=== PATIENT | female | born 1945 | race Caucasian/White ===

== ENCOUNTER 2016-09-22 05:45 | Inpatient (IN) | payer MEDICARE, OTHER ==
[~2016-09-22] VITALS: Ht 162.6 cm; Wt 35.0 kg
[~2016-09-22 05:45] MED LIST: ALBU8I INH; ALLO100T PO; ARIC5TAB PO; ATRO17AE INH; CALC-137 PO; CHOL50006 PO; COUM2TAB PO; DICY10 PO; DILA50CH PO; DRON2.5C PO; DUONI NEB; FENT75DI TD; FIORIC PO; FLOR250C PO; FOSI10TA PO; FURO20TA PO; LIPA1CAP4 PO; LYRI50CA2 PO; OXAZ15CA2 PO; OXYM10TA5 PO; OXYM30TA4 PO; OXYM40TA5 PO; PHEN100 PO; POTA-267 PO; PROM25TA5 PO; PROT40TA PO; SYNT112T PO; TAB-TAB PO; VESI10TA4 PO; VITA10004 PO; ZOLO50TA PO
[2016-09-22 05:55] VITALS: BP 143/68; PULSE 94; RESP 18; TEMP 97.7; O2SAT 94
[2016-09-22] MEDS ORDERED: LIDOCAINE HCL 1% PF 30 ML VIAL INFIL ONE (06:15)
--- NOTE | 2016-09-22 06:29 | PD ---
HPI Chief Complaint: Fall Time Seen by Provider: 06:19 Travel History International Travel<30 days: No Contact w/Intl Traveler<30days: No Traveled to known affect area: No History of Present Illness HPI 71-year-old female presents to the emergency department by private transportation in the care of her spouse for evaluation of head injury. According to the who is with the patient and provides most the history patient was undergoing her evening peritoneal dialysis while lying in bed and reportedly rolled out of bed and hit her head sustaining a scalp laceration to the right frontal scalp. There was no reported loss of consciousness or seizure activity. Patient does have history of seizure activity is currently prescribed Dilantin. According to the she has been on continuous sedation for reported history of chronic restlessness syndrome. Patient has not had any vomiting. states injury occurred approximate 2 PM and he discontinued for dialysis at that time. Patient's did contact the [facility] hospice nurse to evaluate her. Patient is under the care of [facility] for resources but reportedly is not a hospice patient. 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 Tetanus status current as of 2014. Per increased agitation began after a 2 days state [facility] where she had to be placed as there was no one to care for her at home while he had to go out of town to 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 Hx Anticoagulant Therapy: Yes (Coumadin) Anemia: Yes Arthritis: Yes Asthma: Yes Autoimmune Disease: Yes (RA) Blood Disorders: No Anxiety: No Depression: No Heart Rhythm Problems: No Cancer: No Cardiovascular Problems: Yes (MURMER) High Cholesterol: Yes Chemotherapy: No Chest Pain: No Congestive Heart Failure: No COPD: Yes Diabetes: No Diminished Hearing: No Endocrine: Yes Gastrointestinal Disorders: Yes (RECTAL POLYP REMOVED, RECTAL CYST, RECTAL PROLAPSE) GERD: Yes Glaucoma: No Genitourinary: Yes (CHRONIC PYELONEPHRITIS) Headaches: Yes Hepatitis: No Hiatal Hernia: No Hypertension: Yes Immune Disorder: No Implanted Vascular Access Dvce: Yes (RIGHT PICC) Kidney Stones: Yes Musculoskeletal: Yes (CHRONIC BACK PAIN) Neurologic: Yes (SEIZURE ACTIVITY more like shakey when iron is low) Psychiatric: No Reproductive: Yes (hysterectomy) Respiratory: Yes Immunizations Current: Yes Migraines: Yes Myocardial Infarction: No Radiation Therapy: No Renal Failure: Yes (PERITONEAL DALYSIS) Seizures: No Sickle Cell Disease: No Sleep Apnea: No Thyroid Disease: Yes (partial thyroidectomy) Ulcer: Yes (STOMACH - WITH BLOOD TRANSFUSION) PNEUMOCCOCAL Vaccine (Year): 1 Menopausal: Yes Past Surgical History Abdominal Surgery: Yes (IMPLANTEDDIALYSIS CATHETER,rectal prolapse repair) AICD: No Appendectomy: Yes Arteriovenous Shunt: No Body Medical Devices: PERITONEALDIALYSIS TUBE Cardiac Surgery: No Cholecystectomy: Yes Ear Surgery: No Endocrine Surgery: Yes (partial thyroidectomy in 1960 ) Eye Surgery: Yes (rt lens s/p cataracts removal) Genitourinary Surgery: No Gynecologic Surgery: Yes (HYSTERECTOMY) Hysterectomy: Yes Insulin Pump: No Joint Replacement: No Neurologic Surgery: No Oral Surgery: Yes (T & A) Pacemaker: No Thoracic Surgery: No Tonsillectomy: Yes Other Surgery: Yes (DEVIATED SEPTUM, RECTAL PROLAPSE, PARTIAL THYROIDECTOMY) Social History Alcohol Use: No Tobacco Use: No Substance Use: No Allergies-Medications (Allergen,Severity, Reaction): Coded Allergies: Contrast Media (Verified Allergy, Severe, HIVES/SOB, 06/15/15) Diphenhydramine (Verified Allergy, Severe, HIVES/SOB, 06/15/15) ANTIHISTAMINES Penicillin (Verified Allergy, Severe, SOB HIVES, 06/15/15) Adhesives (Verified Allergy, Mild, Swelling, 06/15/15) Benadryl (Verified Allergy, Mild, 06/15/15) Iohexol (OMNIPAQUE) (Verified Allergy, Unknown, sob with premedication-- no contrast!, 06/15/15) Aspirin (Verified Adverse Reaction, Severe, HAS ULCERS, 06/15/15) Reported Meds & Prescriptions Reported Meds & Active Scripts Active Reported Dilantin (Phenytoin Extended) 100 Mg Cap 330 Mg PO DAILY Aricept (Donepezil) 10 Mg Tab 10 Mg PO HS Coumadin (Warfarin) 1 Mg Tab 1 Mg PO DIRECTED Prochlorperazine Maleate 5 Mg Tab 5 Mg PO Q6H PRN Bentyl (Dicyclomine HCl) 10 Mg Cap 10 Mg PO TID PRN Calcitriol 0.25 Mcg Cap 0.25 Mcg PO 2XWEEK Senna (Sennosides) 8.6 Mg Cap 8.6 Mg PO HS Dronabinol 2.5 Mg Cap 2.5 Mg PO BID Protonix (Pantoprazole Sodium) 40 Mg Tab 40 Mg PO DAILY Zenpep (Pancrelipase) 20,000-68,000-109,000 Units Cap 1 Cap PO TIDPC Florastor (Saccharomyces Boulardii) 250 Mg Cap 250 Mg PO DAILY Vesicare (Solifenacin) 10 Mg Tab 10 Mg PO DAILY PRN Lasix (Furosemide) 40 Mg Tab 60 Mg PO DAILY PRN Vitamin D (Ergocalciferol) 50,000 Unit Cap 50,000 Units PO [id number] Oxazepam 15 Mg Cap 15 Mg PO HS PRN Synthroid (Levothyroxine Sodium) 112 Mcg Tab 112 Mcg PO DAILY Haloperidol Liq (Haloperidol Lactate) 2 Mg/Ml Conc 1 Mg PO Q6H Sertraline (Sertraline HCl) 50 Mg Tab 50 Mg PO DAILY Fioricet (Ptwiwheyqq-Fuvlmwhyrvnmh-Gnyikqxw) 50-300-40 Mg Cap 1 Cap PO Q4H Morphine IR (Morphine Sulfate) 15 Mg Tab 15 Mg PO Q4H PRN Methadone (Methadone HCl) 10 Mg Tab 30 Mg PO Q8HR Review of Systems Except as stated in HPI: all other systems reviewed are Neg General / Constitutional: No: Fever HENT: Positive: Headaches, No: Neck Stiffness Cardiovascular: No: Chest Pain or Discomfort Respiratory: No: Shortness of Breath Gastrointestinal: No: Vomiting, Abdominal Pain Genitourinary: No: Decreased Urinary Output Musculoskeletal: Positive: Myalgias, Arthralgias, No: Edema Skin: No Rash Neurologic: No: Weakness Hematologic/Lymphatic: No: Lymph Node Enlargement Physical Exam Narrative GENERAL: Frail adult female mildly disoriented with right frontal scalp laceration. SKIN: Warm and dry. Various staged ecchymoses. HEAD: Atraumatic. Normocephalic. Right frontal scalp laceration 4 cm bleeding controlled no bony abnormality identified no scalp soft tissue swelling. EYES: Pupils equal and round. No scleral icterus. No injection or drainage. ENT: No nasal bleeding or discharge. Mucous membranes pink and moist. NECK: Trachea midline. No JVD. No tenderness to palpation along the cervical spine or bony step-off. CARDIOVASCULAR: Regular rate and rhythm. RESPIRATORY: No accessory muscle use. Clear to auscultation. Breath sounds equal bilaterally. GASTROINTESTINAL: Abdomen soft, non-tender, nondistended. Hepatic and splenic margins not palpable. MUSCULOSKELETAL: Extremities without clubbing, cyanosis, or edema. No obvious deformities. NEUROLOGICAL: Awake and alert mildly disoriented. No obvious cranial nerve deficits. Motor grossly within normal limits. Five out of 5 muscle strength in the arms and legs. Normal speech. PSYCHIATRIC: Appropriate mood and affect; insight and judgment normal. Data Data Last Documented VS Vital Signs Date Time Temp Pulse Resp B/P Pulse Ox O2 Delivery O2 Flow Rate FiO2 09/22/16 06:44 95 Room Air 09/22/16 05:55 97.7 94 18 143/68 Orders Complete Blood Count With Diff (09/22/16 06:05) Prothrombin Time / Inr (Pt) (09/22/16 06:05) Thyroid Stimulating Hormone (09/22/16 06:05) Urinalysis - C+S If Indicated (09/22/16 06:05) Chest, Single Ap (09/22/16 06:05) Ct Brain W/O Iv Contrast(Rout) (09/22/16 06:05) Blood Glucose (09/22/16 06:05) Ecg Monitoring (09/22/16 06:05) Iv Access Insert/Monitor (09/22/16 06:05) Oximetry (09/22/16 06:05) Ct Cerv Spine W/O Contrast (09/22/16 ) Lidocaine Pf 1% Inj (Xylocaine-Mpf 1% In (09/22/16 06:15) Magnesium (Mg) (09/22/16 06:05) Phenytoin (Dilantin) (09/22/16 06:05) Ammonia (09/22/16 06:05) Basic Metabolic Panel (Bmp) (09/22/16 06:44) Urine Culture (09/22/16 07:10) Blood Culture (09/22/16 07:56) Lactic Acid (09/22/16 07:56) Ceftriaxone Inj (Rocephin Inj) (09/22/16 08:15) Admit Order (Ed Use Only) (09/22/16 ) ^ Saline Lock (09/22/16 08:32) Resp Oxygen Ta C Titrat 1-4 L (09/22/16 ) ^ Notify Dr: Other (09/22/16 08:32) Sodium Chloride 0.9% Flush (Ns Flush) (09/22/16 09:00) Sodium Chloride 0.9% Flush (Ns Flush) (09/22/16 08:45) Labs Laboratory Tests Test 09/22/16 09/22/16 06:44 07:10 White Blood Count 14.5 TH/MM3 Red Blood Count 3.99 MIL/MM3 Hemoglobin 12.3 GM/DL Hematocrit 39.6 % Mean Corpuscular Volume 99.3 FL Mean Corpuscular Hemoglobin 30.9 PG Mean Corpuscular Hemoglobin 31.1 % Concent Red Cell Distribution Width 14.6 % Platelet Count 315 TH/MM3 Mean Platelet Volume 7.2 FL Neutrophils (%) (Auto) 90.0 % Lymphocytes (%) (Auto) 3.4 % Monocytes (%) (Auto) 4.6 % Eosinophils (%) (Auto) 0.1 % Basophils (%) (Auto) 1.9 % Neutrophils # (Auto) 13.0 TH/MM3 Lymphocytes # (Auto) 0.5 TH/MM3 Monocytes # (Auto) 0.7 TH/MM3 Eosinophils # (Auto) 0.0 TH/MM3 Basophils # (Auto) 0.3 TH/MM3 CBC Comment DIFF FINAL Differential Comment Prothrombin Time 23.9 SEC Prothromb Time International 2.1 RATIO Ratio Sodium Level 137 MEQ/L Potassium Level 3.1 MEQ/L Chloride Level 97 MEQ/L Carbon Dioxide Level 28.1 MEQ/L Anion Gap 12 MEQ/L Blood Urea Nitrogen 36 MG/DL Creatinine 1.80 MG/DL Estimat Glomerular Filtration 28 ML/MIN Rate Random Glucose 142 MG/DL Calcium Level 7.9 MG/DL Magnesium Level 1.4 MG/DL Ammonia LESS THAN 10 MCMOL/L Thyroid Stimulating Hormone 31.100 uIU/ML 3rd Gen Phenytoin (Dilantin) Level 33.5 MCG/ML Urine Collection Type CATH Urine Color YELLOW Urine Turbidity MOD Urine pH 6.0 Urine Specific [place] 1.016 Urine Protein TRACE mg/dL Urine Glucose (UA) NEG mg/dL Urine Ketones NEG mg/dL Urine Occult Blood LARGE Urine Nitrite NEG Urine Bilirubin NEG Urine Leukocyte Esterase SMALL Urine RBC 20-24 /hpf Urine WBC 15-19 /hpf Urine WBC Clumps FEW Urine Transitional Epithelial 0-5 /hpf Cells Urine Amorphous Sediment FEW Urine Bacteria MANY /hpf Microscopic Urinalysis Comment CATH-CULTURE IND Urine Collection Time 0710 MDM Medical Decision Making Medical Screen Exam Complete: Yes Emergency Medical Condition: Yes Medical Record Reviewed: Yes Interpretation(s) CBC is automated differential: Leukocytosis 14,500 with left shift 90% neutrophils hemoglobin is stable at 12.3; platelets are in normal range at 315, 000 Metabolic panel remarkable for mild hypokalemia potassium 3.1 elevated BUN and creatinine of 36 and 1.80 this is near patient's baseline and random glucose of 142 bicarbonate and on gap are within normal range; patient is noted to have hypomagnesemia 1.4 Dilantin level isn't toxic range at 33.5 Serum ammonia is less than 10, not elevated Urinalysis is abnormal with positive clumped white blood cells and many bacteria culture indicated CT brain noncontrast reveals no acute intracranial abnormality or skull fracture reading per radiologist CONCLUSION: Stable examination. There is diffuse atrophy and an old infarct in left thalamus. No acute hemorrhage or edema identified. Frankie Hernandez MD on September 22, 2016 at 7:20 Board Certified Radiologist. This report was verified electronically. CT cervical spine shows significant degenerative changes but no acute fracture reading per radiologist CONCLUSION: There is marked anterior subluxation of C3 on C4 with accelerated arthritic change. There subchondral sclerosis and subchondral cystic change suggesting chronicity. The left C3 facet is quite small. There is no evidence of fracture. There is apical lung scarring and bleb formation. Frankie Hernandez MD on September 22, 2016 at 7:23 Board Certified Radiologist. This report was verified electronically. cxr: CONCLUSION: Some airspace disease in left upper lobe more pronounced than in December 2014, could be a small area of pneumonia. Frankie Hernandez MD on September 22, 2016 at 7:56 Board Certified Radiologist. This report was verified electronically. Differential Diagnosis ICH, CHI, skull fracture, laceration, contusion, arrhythmia, electrolyte disturbance, dehydration, Coumadin coagulopathy Narrative Course Patient placed on lunchroom monitor IV access obtained specimens questions for resulting patient sent for imaging of the brain and cervical spine At 7 AM patient is in CT department; CBC has been resulted and patient has mild leukocytosis of 14,500 with 90% neutrophils and stable hemoglobin 12.3 normal range platelet count within 15,000 Patient with progressive generalized weakness and being sedated at home because of agitation after being at [facility] for a few days while her had to go out of town and no one was available to care for her since that time she's had increased agitation and has been placed on Haldol along with her chronic pain medications. Patient has memory disturbance as well as history of seizure disorder as well as chronic renal failure and receives peritoneal dialysis daily she is also on Coumadin for previous CVA history and has had history of frequent falls. At this point in time in view of leukocytosis with abnormal urinalysis Dilantin toxicity increased agitation and confusion as well will admit for IV antibiotics hold Dilantin and monitor for seizure activity as level drops monitor for increased risk of fall patient has been cultured prior to administration of antibiotics call placed to her service for admission. Patient's care discussed in detail with Dr Flores for patient admission--- requests patient admit to [facility] telemetry Procedures Procedure Narrative LACERATION LOCATION: Right frontal scalp LENGTH: 4 cm NUMBER OF STITCHES/CHONG: 7 REPAIR: The area of the laceration was prepped with Betadine and sterilely draped. The laceration was infiltrated with 1% lidocaine plain . The wound was copiously irrigated and explored without evidence of foreign body, tendon injury or neurovascular injury. The wound was closed using 5-0 nylon. This was a single layer repair. A sterile dressing was applied. The patient was advised to keep the dressing clean and dry. Patient tolerated the procedure well. Tetanus status current as of 2014. Sepsis Criteria SIRS Criteria (2 or more): Heart rate over 90, WBC > 54617, < 4000 or > 10% bands Sepsis Criteria (SIRS+source): Infect source susp/known (urine) Physician Communication Physician Communication call placed to [facility] ---call placed to discuss with Dr Flores ---admit to [facility] to M/S telemetry Diagnosis Primary Impression: Closed head injury Qualified Code: S09.90XA - Closed head injury, initial encounter Additional Impressions: ESRD (end stage renal disease) Dilantin toxicity Qualified Code: T42.0X1A - Dilantin toxicity, accidental or unintentional, initial encounter UTI (urinary tract infection) Qualified Code: N39.0 - Urinary tract infection without hematuria, site unspecified Scalp laceration Qualified Code: S01.01XA - Scalp laceration, initial encounter Fall Qualified Code: W19.XXXA - Fall, initial encounter Sepsis Dementia Admitting Information Admitting Physician Requests: Admit Candi Cash MD Sep 22, 2016 06:29
[2016-09-22 06:44] VITALS: O2SAT 95
[2016-09-22 06:53] LABS: BASOPHIL # 0.3 TH/MM3 (0-0.2); BASOPHIL % 1.9 % (0.0-2.0); EOSINOPHIL % 0.1 % (0.0-4.0); HEMATOCRIT 39.6 % (35.0-46.0); LYMPH % 3.4 % (9.0-44.0); LYMPHOCYTE # 0.5 TH/MM3 (1.0-4.8); MEAN CELL VOLUME 99.3 FL (80.0-100.0); MEAN CORPUSCULAR HEMOGLOBIN 30.9 PG (27.0-34.0); MEAN CORPUSCULAR HGB CONC 31.1 % (32.0-36.0); MONO % 4.6 % (0.0-8.0); PLATELET COUNT 315 TH/MM3 (150-450); RED BLOOD COUNT 3.99 MIL/MM3 (4.00-5.30); RED CELL DISTRIBUTION WIDTH 14.6 % (11.6-17.2); WHITE BLOOD COUNT 14.5 TH/MM3 (4.0-11.0)
[2016-09-22 06:56] LABS: HEMO FLAGS DIFF FINAL
[2016-09-22 07:08] LABS: INTERNATIONAL NORMALIZED RATIO 2.1 RATIO; PROTHROMBIN TIME - PATIENT 23.9 SEC (9.8-11.6)
[2016-09-22 07:19] LABS: POTASSIUM 3.1 MEQ/L (3.5-5.1)
[2016-09-22 07:20] LABS: BLOOD, URINE LARGE (NEG); GLUCOSE,URINE NEG (NEG); KETONE, URINE NEG (NEG); METHOD OF COLLECTION CATH; NITRITE,URINE NEG (NEG)
[2016-09-22 07:21] LABS: URINE COLOR YELLOW (YELLW/STRAW)
[2016-09-22 07:22] LABS: BICARBONATE 28.1 MEQ/L (21.0-32.0); MAGNESIUM 1.4 MG/DL (1.5-2.5)
--- NOTE | 2016-09-22 07:23 | RADHPO ---
EXAM DATE/TIME: 09/22/2016 06:53 [facility] COMPARISON: No previous studies available for comparison. INDICATIONS : Fall today, laceration to superior head. RADIATION DOSE: 52.19 CTDIvol (mGy) MEDICAL HISTORY : Stroke. Seizures. Hypertension. SURGICAL HISTORY : None. ENCOUNTER: Initial ACUITY: 1 day PAIN SCALE: 7/10 LOCATION: superior head TECHNIQUE: Multiple contiguous axial images were obtained of the head. Using automated exposure control and adj ustment of the mA and/or kV according to patient size, radiation dose was kept as low as reasonably a chievable to obtain optimal diagnostic quality images. FINDINGS: CEREBRUM: There is a mild diffuse atrophy . The ventricles are normal for age. There is a small left lacunar i nfarct, chronic. No evidence of midline shift, mass lesion, hemorrhage or acute infarction. No extra -axial fluid collections are seen. POSTERIOR FOSSA: The cerebellum and brainstem are intact. The 4th ventricle is midline. The cerebellopontine angle i s unremarkable. EXTRACRANIAL: The visualized portion of the orbits is intact. SKULL: The calvaria is intact. No evidence of skull fracture. CONCLUSION: Stable examination. There is diffuse atrophy and an old infarct in left thalamus. No acute hemorrhage or edema identified. Frankie Hernandez MD on September 22, 2016 at 7:20 Board Certified Radiologist. This report was verified electronically.
[2016-09-22 07:25] LABS: BACTERIA, URINE MANY /hpf; COMMENT (UR) CATH-CULTURE IND; CULTURE IF INDICATED CATH CULTURE IND; WBC, URINE 15-19 /hpf (0-5)
[2016-09-22 07:26] LABS: TRANSITIONAL EPI CELLS, URINE 0-5 /hpf
--- NOTE | 2016-09-22 07:34 | RADHPO ---
EXAM DATE/TIME: 09/22/2016 06:53 [facility] COMPARISON: CT CERVICAL SPINE W/O CONTRAST, April 22, 2014, 12:49. INDICATIONS : Fall today, laceration to superior head. RADIATION DOSE: 23.28 CTDIvol (mGy) MEDICAL HISTORY : Stroke. Seizures. Hypertension. SURGICAL HISTORY : None. ENCOUNTER: Initial ACUITY: 1 day PAIN SCALE: 5/10 LOCATION: Bilateral neck TECHNIQUE: Volumetric scanning of the cervical spine was performed. Multiplanar reconstructions in the sagittal, coronal and oblique axial planes were performed. Using automated exposure control and adjustment o f the mA and/or kV according to patient size, radiation dose was kept as low as reasonably achievable to obtain optimal diagnostic quality images. FINDINGS: VERTEBRAE: There is grade 1 almost grade 2 anterior spondylolisthesis of C3 on C4. There is marked disc space na rrowing and subchondral cystic change. Marked intervertebral disc space narrowing at the C5 to 6 and C6-7 levels. There is a rightward cervical scoliosis. C2-C3: The bony spinal canal is normal in size. No evidence of disc bulge or herniation. The neural forami na are bilaterally patent. C3-C4: There is marked anterior subluxation of C3 on C4 with discogenic sclerosis and subchondral cystic marely nge. There is marked degenerative facet disease and subluxation without obvious acute fracture. The l eft C3 facet is small with marked degenerative change. C4-C5: The bony spinal canal is normal in size. No evidence of disc bulge or herniation. The neural forami na are bilaterally patent. C5-C6: There is a ridge of disc osteophyte complex slightly flattening the thecal sac. The facets are well a ligned. C6-C7: The bony spinal canal is normal in size. No evidence of disc bulge or herniation. The neural forami na are bilaterally patent. C7-T1: The bony spinal canal is normal in size. No evidence of disc bulge or herniation. The neural forami na are bilaterally patent. CONCLUSION: There is marked anterior subluxation of C3 on C4 with accelerated arthritic change. There subchondral sclerosis and subchondral cystic change suggesting chronicity. The left C3 facet is quite small. The re is no evidence of fracture. There is apical lung scarring and bleb formation. Frankie Hernandez MD on September 22, 2016 at 7:23 Board Certified Radiologist. This report was verified electronically.
[2016-09-22] MEDS ORDERED: VESI10TA PO (07:45)
[2016-09-22] MEDS ORDERED: FURO1TAB60 PO (07:45)
[2016-09-22] MEDS ORDERED: COUM1TAB PO (07:45)
[2016-09-22] MEDS ORDERED: DRON2.5C PO (07:45)
[2016-09-22] MEDS ORDERED: HALO2S PO (07:45)
[2016-09-22] MEDS ORDERED: BUTA1CAP PO (07:45)
[2016-09-22] MEDS ORDERED: FLOR250C PO (07:45)
[2016-09-22] MEDS ORDERED: SENN8.6C PO (07:45)
[2016-09-22] MEDS ORDERED: SERT-132 PO (07:45)
[2016-09-22] MEDS ORDERED: PROC5TAB PO (07:45)
[2016-09-22] MEDS ORDERED: PROT40TA PO (07:45)
[2016-09-22] MEDS ORDERED: CALC0.25 PO (07:45)
[2016-09-22] MEDS ORDERED: ARIC10TA PO (07:45)
[2016-09-22] MEDS ORDERED: MSIR15 PO (07:45)
[2016-09-22] MEDS ORDERED: ERGO1CAP10 PO (07:45)
[2016-09-22] MEDS ORDERED: DILA100C PO (07:45)
[2016-09-22] MEDS ORDERED: OXAZ15CA2 PO (07:45)
[2016-09-22] MEDS ORDERED: ZENP2000 PO (07:45)
[2016-09-22] MEDS ORDERED: DICY10 PO (07:45)
[2016-09-22] MEDS ORDERED: METH10TA PO (07:45)
[2016-09-22] MEDS ORDERED: SYNT112T PO (07:45)
--- NOTE | 2016-09-22 07:58 | RADHPO ---
EXAM DATE/TIME: 09/22/2016 07:18 [facility] COMPARISON: CHEST SINGLE AP, December 22, 2014, 13:18. INDICATIONS : Syncope MEDICAL HISTORY : None. SURGICAL HISTORY : None. ENCOUNTER: Initial ACUITY: 1 day PAIN SCORE: Non-responsive. LOCATION: Bilateral chest FINDINGS: A single view of the chest demonstrates a prominent bleb in the right midlung field. There some airsp afshan disease in the left upper lobe. No obvious pneumothorax. Continued right scoliosis.. The cardiom ediastinal contours are unremarkable. Osseous structures are intact. CONCLUSION: Some airspace disease in left upper lobe more pronounced than in December 2014, could be a small area of pneumonia. Frankie Hernandez MD on September 22, 2016 at 7:56 Board Certified Radiologist. This report was verified electronically.
[2016-09-22] MEDS ORDERED: cefTRIAXone INJ 1,000 MG in SODIUM CHLORIDE 0.9% INJ 100 ML IV ONE (08:15)
[2016-09-22] MEDS ORDERED: MAGNESIUM SULFATE 1 GM PREMIX 100 ML IV ONE (08:45)
[2016-09-22] MEDS ORDERED: SODIUM CHLORIDE 0.9% FLUSH 5 ML FLUSH FLUSH PRN (08:45)
[2016-09-22] MEDS ORDERED: SODIUM CHLORIDE 0.9% FLUSH 5 ML FLUSH IVF PRN (08:45)
[2016-09-22] MEDS ORDERED: SODIUM CHLORIDE 0.9% FLUSH 5 ML FLUSH IVF SCH (09:00)
[2016-09-22] MEDS: SODIUM CHLORIDE 0.9% FLUSH 5 ML FLUSH FLUSH SCH ×2 (09:25→21:51)
[2016-09-22 10:30] VITALS: BP 149/91; PULSE 80; RESP 18; O2SAT 96
[2016-09-22] MEDS ORDERED: HALOPERIDOL LACTATE 5 MG/ML AMP IM ONE (14:00)
[2016-09-22 16:01] VITALS: BP 115/66
--- NOTE | 2016-09-22 16:26 | HHI.HP ---
[facility] Service [facility] Primary Care Physician Jose Miguel Moeller MD Admission Diagnosis CHI; scalp laceration; dilantin toxicity; polypharmacy;UTI;ESRD Diagnoses: Chief Complaint: fall Travel History International Travel<30 Days: No Contact w/Intl Traveler <30 Da: No Traveled to Known Affected Are: No Sepsis Criteria SIRS Criteria (2 or more): Heart rate over 90, WBC > 45251, < 4000 or > 10% bands Severe Sepsis (+one): Lactate >2 Septic Shock Criteria: Lactic acid >=4 Criteria Outcome: Meets septic shock criteria History of Present Illness Patient is a 71-year-old female with dementia who did arrive to the emergency room with private transportation after a fall at home. Patient has been on home health care through [facility] although she is not on hospice. Apparently normally she lives with her who was out of town and the patient went to rehabilitation facility. Her son was able to bring her home however the home care Center per the patient's son was out of the room and the patient fell on her head and sustained a right sided laceration to the parietal temporal area. It has since been repaired in the emergency room. There is no loss of consciousness or seizure activity. Patient has severe dementia and has required constant reorienting and has been a fall risk in the past. She is also on Coumadin due to her history of stroke. Here the patient is quite agitated and requiring constant supervision. She is incoherent which is not new per the patient done. Patient does undergo peritoneal dialysis and has reportedly not had any trouble with this however she has come to the hospital with alleged lites which are quite abnormal as well as some toxicity levels with Dilantin. Recently patient's confusion has gotten worse and she had been placed on intermediate release morphine in addition to her methadone Fioricet as well as haloperidol in addition to her sertraline. Patient has also been on Aricept for dementia. He does have a history of seizures and that is why she is on Dilantin. There have been no fevers or chills. Has been no nausea. Patient has constant diarrhea due to rectal prolapse and inability to care for herself. Per the son this may have gotten worse over the last week. Patient appears quite dehydrated on exam. She eats poorly and has a normal body weight of about 80 pounds per the son. Lately she has eaten even less. Patient was admitted through the emergency room due to these issues. She was unable to have her labs drawn until vascular access was obtained. At that time blood cultures were obtained as well as serum lactate which was elevated at 5. She has mild leukocytosis, abnormal urinalysis and appears to be septic. She has been given IV antibiotics. Patient has been admitted to the medical team at [facility]. Review of Systems ROS Limitations: Poor Historian Constitutional: COMPLAINS OF: Weight loss, Change in appetite Endocrine: DENIES: Abnorml menstrual pattern, Heat/cold intolerance, Polydipsia , Polyuria, Polyphagia Eyes: DENIES: Blurred vision, Diplopia, Eye inflammation, Eye pain, Vision loss , Photosensitivity, Double Vision Ears, nose, mouth, throat: DENIES: Tinnitus, Hearing loss, Vertigo, Nasal discharge, Oral lesions, Throat pain, Hoarseness, Ear Pain, Running Nose, Epistaxis, Sinus Pain, Toothache, Odynophagia Cardiovascular: DENIES: Chest pain, Palpitations, Syncope, Dyspnea on Exertion , PND, Lower Extremity Edema, Orthopnea, Claudication Gastrointestinal: COMPLAINS OF: Abdominal pain, Diarrhea, DENIES: Black stools , Bloody stools, Constipation, Nausea, Vomiting, Difficulty Swallowing, Anorexia Genitourinary: DENIES: Abnormal vaginal bleeding, Dysmenorrhea, Dyspareunia, Sexual dysfunction, Urinary frequency, Urinary incontinence, Urgency, Hematuria , Dysuria, Nocturia, Vaginal discharge Musculoskeletal: DENIES: Joint pain, Muscle aches, Stiffness, Joint Swelling, Back pain, Neck pain Integumentary: DENIES: Abnormal pigmentation, Pruritus, Rash, Nail changes, Breast masses, Breast skin changes, Nipple discharge Hematologic/lymphatic: DENIES: Bruising, Lymphadenopathy Immunologic/allergic: DENIES: Eczema, Urticaria Neurologic: DENIES: Abnormal gait, Headache, Localized weakness, Paresthesias, Seizures, Speech Problems, Tremor, Poor Balance Psychiatric: COMPLAINS OF: Anxiety, Confusion, DENIES: Mood changes, Depression, Hallucinations, Agitation, Suicidal Ideation, Homicidal Ideation, Delusions Past Family Social History Past Medical History Fibromyalgia History of stroke on Coumadin Severe dementia Bladder instability Fecal incontinence Chronic any disease on peritoneal dialysis Hypothyroidism Chronic pain Past Surgical History Cholecystectomy Peritoneal dialysis placement Rectal surgery Eye surgery Partial thyroidectomy Hysterectomy Reported Medications Reviewed and the medical record, recently started on Haldol and Serax Allergies: Coded Allergies: Contrast Media (Verified Allergy, Severe, HIVES/SOB, 06/15/15) Diphenhydramine (Verified Allergy, Severe, HIVES/SOB, 06/15/15) ANTIHISTAMINES Penicillin (Verified Allergy, Severe, SOB HIVES, 06/15/15) Adhesives (Verified Allergy, Mild, Swelling, 06/15/15) Benadryl (Verified Allergy, Mild, 06/15/15) Iohexol (OMNIPAQUE) (Verified Allergy, Unknown, sob with premedication-- no contrast!, 06/15/15) Aspirin (Verified Adverse Reaction, Severe, HAS ULCERS, 06/15/15) Active Ordered Medications Reviewed in the medical record Family History Family history of hypertension and otherwise noncontributory due to multiple medical problems Social History No current tobacco or alcohol, lives at home where her is her full-time transplant rn Physical Exam Vital Signs Vital Signs Date Time Temp Pulse Resp B/P Pulse Ox O2 Delivery O2 Flow Rate FiO2 09/22/16 16:01 100 17 115/66 95 09/22/16 10:30 80 18 149/91 96 Room Air 09/22/16 06:44 95 Room Air 09/22/16 05:55 97.7 94 18 143/68 94 Physical Exam GENERAL: This is a frail elderly confused female requiring constant supervision SKIN: No rashes, ecchymoses or lesions. Cool and dry. HEAD: Right scalp laceration status post repair. Normocephalic. No temporal or scalp tenderness. EYES: Pupils equal round and reactive. Extraocular motions intact. No scleral icterus. No injection or drainage. ENT: Nose without bleeding, purulent drainage or septal hematoma. Throat without erythema, tonsillar hypertrophy or exudate. Uvula midline. Airway patent. NECK: Trachea midline. No JVD or lymphadenopathy. Supple, nontender, no meningeal signs. CARDIOVASCULAR: Regular rate and rhythm without murmurs, gallops, or rubs. RESPIRATORY: Clear to auscultation. Breath sounds equal bilaterally. No wheezes , rales, or rhonchi. GASTROINTESTINAL: Abdomen is soft, hypoactive, scaphoid, peritoneal catheter in place without surrounding erythema, tender on exam MUSCULOSKELETAL: Bilateral joint deformities consistent with osteoarthritis. Extremities without clubbing, cyanosis, or edema. No joint tenderness, effusion , or edema noted. No calf tenderness. Negative Homans sign bilaterally. NEUROLOGICAL: Awake and alert. Cranial nerves II through XII intact. Motor and sensory grossly within normal limits. Five out of 5 muscle strength in all muscle groups. Normal speech. Laboratory Laboratory Tests Test 09/22/16 09/22/16 09/22/16 06:44 07:10 14:40 White Blood Count 14.5 Red Blood Count 3.99 Hemoglobin 12.3 Hematocrit 39.6 Mean Corpuscular Volume 99.3 Mean Corpuscular Hemoglobin 30.9 Mean Corpuscular Hemoglobin 31.1 Concent Red Cell Distribution Width 14.6 Platelet Count 315 Mean Platelet Volume 7.2 Neutrophils (%) (Auto) 90.0 Lymphocytes (%) (Auto) 3.4 Monocytes (%) (Auto) 4.6 Eosinophils (%) (Auto) 0.1 Basophils (%) (Auto) 1.9 Neutrophils # (Auto) 13.0 Lymphocytes # (Auto) 0.5 Monocytes # (Auto) 0.7 Eosinophils # (Auto) 0.0 Basophils # (Auto) 0.3 CBC Comment DIFF FINAL Differential Comment Prothrombin Time 23.9 Prothromb Time International 2.1 Ratio Sodium Level 137 Potassium Level 3.1 Chloride Level 97 Carbon Dioxide Level 28.1 Anion Gap 12 Blood Urea Nitrogen 36 Creatinine 1.80 Estimat Glomerular Filtration 28 Rate Random Glucose 142 Calcium Level 7.9 Magnesium Level 1.4 Ammonia LESS THAN 10 Thyroid Stimulating Hormone 31.100 3rd Gen Phenytoin (Dilantin) Level 33.5 Urine Collection Type CATH Urine Color YELLOW Urine Turbidity MOD Urine pH 6.0 Urine Specific [place] 1.016 Urine Protein TRACE Urine Glucose (UA) NEG Urine Ketones NEG Urine Occult Blood LARGE Urine Nitrite NEG Urine Bilirubin NEG Urine Leukocyte Esterase SMALL Urine RBC 20-24 Urine WBC 15-19 Urine WBC Clumps FEW Urine Transitional Epithelial 0-5 Cells Urine Amorphous Sediment FEW Urine Bacteria MANY Microscopic Urinalysis Comment CATH-CULTURE IND Urine Collection Time 0710 Lactic Acid Level 5.9 Date/Time Procedure Status Source Growth 09/22/16 14:40 Aerobic Blood Culture Received Blood Peripheral Pending 09/22/16 14:40 Anaerobic Blood Culture Received Blood Peripheral Pending 09/22/16 07:10 Urine Culture Received Urine Catheterized Urine Pending Result Diagram: 09/22/1644 09/22/16643 Septic Shock Reassessment Heart: Regular rate and rhythm Lungs: Clear Skin: Warm Peripheral Pulses: Bounding Right Radial Bounding Left Radial Bounding Right Popliteal Bounding Left Popliteal Bounding Right Dorsalis Pedis Bounding Left Dorsalis Pedis Bounding Right Posterior Tibial Bounding Left Posterior Tibial Capillary Refill: Brisk Assessment and Plan Problem List: (1) Dilantin toxicity ICD Code: T42.0X1A Status: Acute Plan: We'll continue to hold Dilantin. Continue with dialysis plans Repeat levels (2) Scalp laceration ICD Code: S01.01XA Status: Acute Plan: Status post repair, continue supportive care wound care (3) Dementia ICD Code: F03.90 Status: Acute Plan: Severe, family health care surrogate through this spouse Continue Aricept (4) ESRD (end stage renal disease) ICD Code: N18.6 Status: Acute Plan: Continue peritoneal dialysis with nephrology consultation. (5) Septic shock ICD Code: A41.9 Status: Acute Plan: May be multifactorial Continue Vanco Flagyl, Cipro (PCN ALL) for possible spontaneous bacterial peritonitis, blood cultures are pending, urinalysis was abnormal ID consult (6) Closed head injury ICD Code: S09.90XA Status: Acute Plan: Status post scalp laceration repair Continue neuro checks (7) Dehydration ICD Code: E86.0 Status: Acute Plan: Patient with dry mucous membranes and poor IV access. We'll hydrate patient and continue to follow Assessment and Plan Chronically ill patient with acute change in status. Code Status full code Discussed Condition With patient family; TOPOGRAPHICAL ENGINEER, ER MD Cash Physician Certification 2 Midnight Certification Type: Admission for Inpatient Services Order for Inpatient Services The services are ordered in accordance with Medicare regulations or non- Medicare payer requirements, as applicable. In the case of services not specified as inpatient-only, they are appropriately provided as inpatient services in accordance with the 2-midnight benchmark. Estimated LOS (days): 5 5 days is the estimated time the patient will need to remain in the hospital, assuming treatment plan goals are met and no additional complications. Post-Hospital Plan: Not yet determined Problem Qualifiers (1) Dilantin toxicity: Qualified Code: T42.0X1A - Dilantin toxicity, accidental or unintentional, initial encounter (2) Scalp laceration: Qualified Code: S01.01XA - Scalp laceration, initial encounter (3) Closed head injury: Qualified Code: S09.90XA - Closed head injury, initial encounter Pinky Flores MD Sep 22, 2016 16:26
[2016-09-22] MEDS ORDERED: VANCOMYCIN INJ 1,250 MG in SODIUM CHLOR 0.9% 250 ML INJ 250 ML IV SCH (16:45)
[2016-09-22] MEDS ORDERED: Vancomycin Consult Pharmacy 1 EA OTHER SCH (16:45)
[2016-09-22] MEDS: SODIUM CHLOR 0.9% 1000 ML INJ 1,000 ML IV SCH (17:00)
[2016-09-22 17:24] VITALS: BP 114/64; PULSE 90; RESP 18; TEMP 97.5; O2SAT 96
[2016-09-22] MEDS ORDERED: HEPARIN SODIUM - IV 10,000 UNITS/10 ML VIAL IVF PRN (17:45)
[2016-09-22] MEDS ORDERED: SODIUM CHLORIDE 0.9% 10 ML VIAL IV PRN (17:45)
[2016-09-22] MEDS ORDERED: VANCOMYCIN INJ 800 MG in SODIUM CHLOR 0.9% 250 ML INJ 250 ML IV ONE (18:00)
[2016-09-22] MEDS ORDERED: POTASSIUM PHOSPHATE INJ 15 MMOL in SODIUM CHLORIDE 0.9% INJ 150 ML IV ONE (18:00)
[2016-09-22] MEDS ORDERED: CIPROFLOXACIN 200 MG PREMIX 100 ML IV SCH (18:00)
[2016-09-22] MEDS: metroNIDAZOLE 500 MG INJ 100 ML IV SCH (18:16)
[2016-09-22] MEDS: HALOPERIDOL LACTATE ORAL CONC 10 MG/5 ML CUP PO SCH (19:27)
[2016-09-22] MEDS: LIPASE/PROTEASE/AMYLASE (24,000/76,000/120,000) CAP PO SCH (19:27)
[2016-09-22 23:37] VITALS: BP 132/62; PULSE 92; RESP 19; TEMP 97.1; O2SAT 94
[2016-09-23] VITALS (8 sets, daily range): BP systolic 124–147; BP diastolic 62–76; PULSE 75–83; RESP 16–18; TEMP 97.1–98.7; O2SAT 93–97
[2016-09-23] MEDS: HALOPERIDOL LACTATE ORAL CONC 10 MG/5 ML CUP PO SCH ×4 (00:55→17:23)
[2016-09-23] MEDS: SODIUM CHLOR 0.9% 1000 ML INJ 1,000 ML IV SCH (03:00)
[2016-09-23] MEDS: CIPROFLOXACIN 200 MG PREMIX 100 ML IV SCH ×2 (03:35→14:00)
[2016-09-23] MEDS: metroNIDAZOLE 500 MG INJ 100 ML IV SCH ×3 (03:35→17:21)
[2016-09-23] MEDS: LEVOTHYROXINE SODIUM 112 MCG TAB PO SCH (07:00)
[2016-09-23 08:11] LABS: AUTOMATED NEUTROPHIL # 15.7 TH/MM3 (1.8-7.7); BASOPHIL % 0.2 % (0.0-2.0); EOSINOPHIL % 0.1 % (0.0-4.0); HEMATOCRIT 31.1 % (35.0-46.0); HEMO FLAGS DIFF FINAL; LYMPH % 3.1 % (9.0-44.0); LYMPHOCYTE # 0.5 TH/MM3 (1.0-4.8); MEAN CORPUSCULAR HEMOGLOBIN 31.9 PG (27.0-34.0); MEAN CORPUSCULAR HGB CONC 32.6 % (32.0-36.0); MONO % 5.6 % (0.0-8.0); PLATELET COUNT 326 TH/MM3 (150-450); RED BLOOD COUNT 3.17 MIL/MM3 (4.00-5.30); RED CELL DISTRIBUTION WIDTH 14.2 % (11.6-17.2); WHITE BLOOD COUNT 17.3 TH/MM3 (4.0-11.0)
[2016-09-23 08:29] LABS: ALKALINE PHOSPHATASE 236 U/L (45-117); ALT (GPT) 15 U/L (10-53); ANION GAP 12 MEQ/L (5-15); AST (GOT) 16 U/L (15-37); BLOOD UREA NITROGEN 27 MG/DL (7-18); CHLORIDE 97 MEQ/L (98-107); GLOMERULAR FILTRATION RATE 33 ML/MIN (>89); POTASSIUM 3.7 MEQ/L (3.5-5.1); SODIUM (NA) 136 MEQ/L (136-145); TOTAL BILIRUBIN ADULT 0.2 MG/DL (0.2-1.0)
[2016-09-23] MEDS: SERTRALINE HCL 50 MG TAB PO SCH (08:55)
[2016-09-23] MEDS: SODIUM CHLORIDE 0.9% FLUSH 5 ML FLUSH FLUSH SCH ×2 (08:56→21:46)
[2016-09-23] MEDS: LIPASE/PROTEASE/AMYLASE (24,000/76,000/120,000) CAP PO SCH ×3 (09:30→17:24)
[2016-09-23 09:54] LABS: LACTIC ACID GHOST NOT REPORTABLE
--- NOTE | 2016-09-23 10:16 | PD.CONS ---
[facility] Service Nephrology Consult Requested By Dr. Flores Reason for Consult ESRD on PD Primary Care Physician Jose Miguel Moeller MD History of Present Illness The patient is a 71 yo [place] female who is known to our services for ESRD on PD. She has severe dementia, so information was obtained thru previous documentation. As per notes, she has been at [facility] for just a few days as her who is her primary caregiver was out of town. She reportedly has been agitated and more confused since her stay at [facility]. She arrived with a head laceration that she states occurred from tripping and falling at her house. Her reported that she rolled out of bed. Although she does have seizure hx, she apparently did not have an seizure activity during fall, nor experience and LOC. She herself denies any fever, chills, nausea, vomiting, or diarrhea, but does endorse RLQ abdominal pain. We were consulted for dialysis care. (Lynn Yoder) Review of Systems ROS Limitations: Altered Mental Status (Lynn Yoder) Past Family Social History Allergies: Coded Allergies: Contrast Media (Verified Allergy, Severe, HIVES/SOB, 06/15/15) Diphenhydramine (Verified Allergy, Severe, HIVES/SOB, 06/15/15) ANTIHISTAMINES Penicillin (Verified Allergy, Severe, SOB HIVES, 06/15/15) Adhesives (Verified Allergy, Mild, Swelling, 06/15/15) Benadryl (Verified Allergy, Mild, 06/15/15) Iohexol (OMNIPAQUE) (Verified Allergy, Unknown, sob with premedication-- no contrast!, 06/15/15) Aspirin (Verified Adverse Reaction, Severe, HAS ULCERS, 06/15/15) Past Medical History ESRD on PD Fibromyalgia History of stroke on Coumadin Severe dementia Bladder instability Fecal incontinence Hypothyroidism Chronic pain Seizure Disorder Past Surgical History Hysterectomy Endoscopy for GI bleed and partial gastrectomy Lens surgery Peritoneal dialysis catheter insertion Nasal septum Rectal polyp and prolapse Partial thyroidectomy Reported Medications Reported Meds & Active Scripts Active Reported Dilantin (Phenytoin Extended) 100 Mg Cap 330 Mg PO DAILY Aricept (Donepezil) 10 Mg Tab 10 Mg PO HS Coumadin (Warfarin) 1 Mg Tab 1 Mg PO DIRECTED Prochlorperazine Maleate 5 Mg Tab 5 Mg PO Q6H PRN Bentyl (Dicyclomine HCl) 10 Mg Cap 10 Mg PO TID PRN Calcitriol 0.25 Mcg Cap 0.25 Mcg PO 2XWEEK Senna (Sennosides) 8.6 Mg Cap 8.6 Mg PO HS Dronabinol 2.5 Mg Cap 2.5 Mg PO BID Protonix (Pantoprazole Sodium) 40 Mg Tab 40 Mg PO DAILY Zenpep (Pancrelipase) 20,000-68,000-109,000 Units Cap 1 Cap PO TIDPC Florastor (Saccharomyces Boulardii) 250 Mg Cap 250 Mg PO DAILY Vesicare (Solifenacin) 10 Mg Tab 10 Mg PO DAILY PRN Lasix (Furosemide) 40 Mg Tab 60 Mg PO DAILY PRN Vitamin D (Ergocalciferol) 50,000 Unit Cap 50,000 Units PO [id number] Oxazepam 15 Mg Cap 15 Mg PO HS PRN Synthroid (Levothyroxine Sodium) 112 Mcg Tab 112 Mcg PO DAILY Haloperidol Liq (Haloperidol Lactate) 2 Mg/Ml Conc 1 Mg PO Q6H Sertraline (Sertraline HCl) 50 Mg Tab 50 Mg PO DAILY Fioricet (Uxkohcvyhl-Vjivolhtveexk-Sudznacj) 50-300-40 Mg Cap 1 Cap PO Q4H Morphine IR (Morphine Sulfate) 15 Mg Tab 15 Mg PO Q4H PRN Methadone (Methadone HCl) 10 Mg Tab 30 Mg PO Q8HR Active Ordered Medications Current Medications Medications (Trade) Dose Ordered Sig/Adeel Route Start Time Stop Time Status Last Admin (NS Flush) 2 ml UNSCH PRN FLUSH 09/22/16 08:45 (NS Flush) 2 ml BID FLUSH 09/22/16 09:00 09/23/16 08:56 (Haldol Lactate Liq) 1 mg Q6HR PO 09/22/16 18:00 09/23/16 07:01 (Synthroid) 112 mcg DAILY@06 PO 09/23/16 06:00 09/23/16 07:00 (Msir) 15 mg Q4H PRN PO 09/22/16 16:30 (Zoloft) 50 mg DAILY PO 09/23/16 09:00 09/23/16 08:55 Amylase/Lipase/ Protease 1 cap 1 cap TIDPC PO 09/22/16 18:30 09/22/16 19:27 Metronidazole 100 ml @ 100 mls/hr Q8H IV 09/22/16 17:00 09/23/16 08:56 Pharmacy Profile Note 0 ml @ 0 mls/hr UNSCH OTHER 09/22/16 16:45 Sodium Chloride 1,000 ml @ 100 mls/hr Q10H IV 09/22/16 17:00 09/22/16 17:00 (Cipro 200 Mg Premix) 100 ml @ 100 mls/hr Q12H IV 09/23/16 02:00 09/23/16 03:35 Family History Noncontributory Social History Lives at home with her . No h/o EtOH use, tobacco use, illicit drugs (Lynn Yoder) Physical Exam Vital Signs Vital Signs Date Time Temp Pulse Resp B/P Pulse Ox O2 Delivery O2 Flow Rate FiO2 09/23/16 09:39 95 09/23/16 08:00 98.7 83 16 147/67 96 09/23/16 05:29 97.1 81 18 145/76 93 09/22/16 23:37 97.1 92 19 132/62 94 09/22/16 17:24 97.5 90 18 114/64 96 09/22/16 16:01 100 17 115/66 95 09/22/16 10:30 80 18 149/91 96 Room Air Physical Exam GENERAL: Appears much older than states age. Cachectic. SKIN: Warm and dry. HEAD: . Normocephalic. Repaired laceration to R parietal region EYES: Pupils equal and round. No scleral icterus. No injection or drainage. ENT: No nasal bleeding or discharge. Mucous membranes pink and moist. NECK: Trachea midline. No JVD. CARDIOVASCULAR: Regular rate and rhythm. RESPIRATORY: No accessory muscle use. Clear to auscultation. Breath sounds equal bilaterally. GASTROINTESTINAL: Abdomen soft, nondistended. Hepatic and splenic margins not palpable. PD catheter dressed and clean on R side of abdomen. Tender to deep palpation RLQ MUSCULOSKELETAL: Extremities without clubbing, cyanosis, or edema. No obvious deformities. Bandaged RLE NEUROLOGICAL: Awake and alert. Normal speech. Appears confused and has to be redirected to answer questions. PSYCHIATRIC: Inappropriate mood and affect; abnormal insight and judgment Laboratory Laboratory Tests Test 09/22/16 09/23/16 14:40 07:44 Lactic Acid Level 5.9 2.2 White Blood Count 17.3 Red Blood Count 3.17 Hemoglobin 10.1 Hematocrit 31.1 Mean Corpuscular Volume 98.0 Mean Corpuscular Hemoglobin 31.9 Mean Corpuscular Hemoglobin 32.6 Concent Red Cell Distribution Width 14.2 Platelet Count 326 Mean Platelet Volume 7.7 Neutrophils (%) (Auto) 91.0 Lymphocytes (%) (Auto) 3.1 Monocytes (%) (Auto) 5.6 Eosinophils (%) (Auto) 0.1 Basophils (%) (Auto) 0.2 Neutrophils # (Auto) 15.7 Lymphocytes # (Auto) 0.5 Monocytes # (Auto) 1.0 Eosinophils # (Auto) 0.0 Basophils # (Auto) 0.0 CBC Comment DIFF FINAL Differential Comment Sodium Level 136 Potassium Level 3.7 Chloride Level 97 Carbon Dioxide Level 27.0 Anion Gap 12 Blood Urea Nitrogen 27 Creatinine 1.55 Estimat Glomerular Filtration 33 Rate Random Glucose 120 Calcium Level 7.5 Total Bilirubin 0.2 Aspartate Amino Transf 16 (AST/SGOT) Alanine Aminotransferase 15 (ALT/SGPT) Alkaline Phosphatase 236 Total Protein 5.3 Albumin 1.4 Phenytoin (Dilantin) Level 17.8 Date/Time Procedure Status Source Growth 09/22/16 17:41 Aerobic Blood Culture Received Blood Peripheral Pending 09/22/16 17:41 Anaerobic Blood Culture Received Blood Peripheral Pending 09/22/16 07:10 Urine Culture Received Urine Catheterized Urine Pending (Lynn Yoder) Result Diagram: 09/23/16 0744 09/23/16 0744 Imaging Last Impressions Head CT 09/22/16 0605 Signed Impressions: Service Date/Time: Thursday, September 22, 2016 06:53 - CONCLUSION: Stable examination. There is diffuse atrophy and an old infarct in left thalamus. No acute hemorrhage or edema identified. Frankie Hernandez MD Chest X-Ray 09/22/16 0605 Signed Impressions: Service Date/Time: Thursday, September 22, 2016 07:18 - CONCLUSION: Some airspace disease in left upper lobe more pronounced than in December 2014, could be a small area of pneumonia. Frankie Hernandez MD Cervical Spine CT 09/22/16 0000 Signed Impressions: Service Date/Time: Thursday, September 22, 2016 06:53 - CONCLUSION: There is marked anterior subluxation of C3 on C4 with accelerated arthritic change. There subchondral sclerosis and subchondral cystic change suggesting chronicity. The left C3 facet is quite small. There is no evidence of fracture. There is apical lung scarring and bleb formation. Frankie Hernandez MD (Lynn Yoder) Assessment and Plan Problem List: (1) ESRD (end stage renal disease) Plan: To continue with PD as ordered. Dialysis nurse has been contacted. Will check peritoneal cell counts and culture to r/o peritonitis. ID is on board and appreciate recommendations. Check phos, iPTH, and Vit D levels. The patient is severely debilitated and is at nutritional risk with hypoalbuminemia. Medications should be adjusted for the patient's ESRD. Avoid gadolinium. (2) Failure to thrive in adult Plan: As above, she has severe hypoalbuminemia. She has been deteriorating significant as an outpatient both physically and mentally. Given her overall declining status, we do feel that hospice would be appropriate if agreeable with the primary. CM should be consulted. (3) Closed head injury Plan: Repaired in ED. CT reviewed. Appears Warfarin has been held. (4) Dementia Plan: Mgmt as per primary (5) Sepsis Plan: BCx, UCx, and peritoneal cx pending. Abx as per ID (Lynn Yoder) Assessment and Plan The exam, history, and the medical decision-making described in the above note were completed with the assistance of the PA-C. I reviewed and agree with the findings presented. I attest that I had a [id number] encounter with the patient on the same day, and personally performed and documented my assessment and findings in the medical record. (Patricia Antony MD) Problem Qualifiers (1) Closed head injury: Qualified Code: S09.90XA - Closed head injury, initial encounter Lynn Yoder Sep 23, 2016 10:16 Patricia Antony MD Sep 24, 2016 15:41
--- NOTE | 2016-09-23 10:30 | PD.CONS ---
History of Present Illness Service Infectious disease Consult Requested By Dr Cynthia Flores Reason for Consult Evaluate patient with sepsis Primary Care Physician Jose Miguel Moeller MD Diagnoses: History of Present Illness Patient seen and examined. Records reviewed. Patient is a 71-year-old female presented to the hospital after a fall. Patient has underlying dementia, and is cared for by the . Apparently the last week or so she was placed in a rehabilitation facility short-term because the had to go out of town. The son took her out of the rehabilitation facility, and has had some home health nurses checking her at home. Apparently the nurse was not in the room and the patient fell off the bed and hit her head. She was taken to the emergency room, and was found to have laceration on her scalp which was sutured. Patient has problem with dementia and agitation and requires constant supervision. In the ED she has not been febrile. There's been no mention of any fever or chills at home. She gets pert nail dialysis, and there is no mention as to whether there was any cloudiness of her fluid. She complains of some abdominal pain. There is been no report of any diarrhea. Patient still voids. There has been no mention of any respiratory complain a sparse cough or shortness of breath. Because of her underlying dementia, it's been difficult to get a good history from her as far as trying to get a reliable review of systems. In the ED she had an elevated WBC. Her urinalysis did show some pyuria. Chest x-ray has shown stable left upper lobe infiltrate. Her lactic acid was elevated. Infectious disease consultation has been requested to evaluate for possible sepsis. Patient received 1 dose of vancomycin in the emergency room. She is currently on Cipro and Flagyl. CT of the head showed market atrophy, and an old infarct in the left thalamus. Cervical spine CT showing abnormality in C3- C4 no evidence of fracture. Review of Systems ROS Limitations: Clinical Condition, Altered Mental Status Past Family Social History Allergies: Coded Allergies: Contrast Media (Verified Allergy, Severe, HIVES/SOB, 06/15/15) Diphenhydramine (Verified Allergy, Severe, HIVES/SOB, 06/15/15) ANTIHISTAMINES Penicillin (Verified Allergy, Severe, SOB HIVES, 06/15/15) Adhesives (Verified Allergy, Mild, Swelling, 06/15/15) Benadryl (Verified Allergy, Mild, 06/15/15) Iohexol (OMNIPAQUE) (Verified Allergy, Unknown, sob with premedication-- no contrast!, 06/15/15) Aspirin (Verified Adverse Reaction, Severe, HAS ULCERS, 06/15/15) Past Medical History Fibromyalgia History of stroke on Coumadin Severe dementia Bladder instability Fecal incontinence Chronic any disease on peritoneal dialysis Hypothyroidism Chronic pain Past Surgical History Cholecystectomy Peritoneal dialysis placement Rectal surgery Eye surgery Partial thyroidectomy Hysterectomy Active Ordered Medications Creon Pro- Haldol Heparin Synthroid Flagyl Morphine Zoloft Vancomycin IV x 1 dose yesterday Social History No smoking No alcohol No drugs 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 SKIN: Cool and dry. Has scattered purpuric areas in her UE and LE HEAD: Normocephalic. No temporal or scalp tenderness. Has a sutured laceration in the R frontal region, dry, with no evidence of infection EYES: Pale conjunctiva, no petechia or hemorrhage. Pupils equal round and reactive. Extraocular motions intact. No scleral icterus. No injection or drainage. ENT: Nose without bleeding, or purulent drainage. Slightly dry oral mucosa. Throat without erythema, or exudate. Uvula midline. Airway patent. NECK: Trachea midline. No JVD or lymphadenopathy. Supple, nontender, no meningeal signs. CARDIOVASCULAR: Regular rate and rhythm without murmurs, gallops, or rubs. RESPIRATORY: Clear to auscultation. Breath sounds equal bilaterally. No wheezes , rales, or rhonchi. Decreased breath sounds at the bases. Has very prominent rib cage. GASTROINTESTINAL: Abdomen soft, mildly distended, with mild tenderness in the lower quadrants. No guarding no rebound. Bowel sounds are present and hypoactive. PD catheter on the right side. No hepato-splenomegaly, or palpable masses. MUSCULOSKELETAL: Extremities without clubbing, cyanosis, or edema. No joint tenderness, effusion, or edema noted. No calf tenderness. Negative Homans sign bilaterally. NEUROLOGICAL: Awake and alert. Cranial nerves grossly intact. Symmetrical motor strength in all extremities. No Babinski, no ankle clonus. She is confused. PSYCH: Confused, calm and cooperative LINE: PIV with no evidence of infection Laboratory Laboratory Tests Test 09/22/16 09/23/16 14:40 07:44 Lactic Acid Level 5.9 2.2 White Blood Count 17.3 Red Blood Count 3.17 Hemoglobin 10.1 Hematocrit 31.1 Mean Corpuscular Volume 98.0 Mean Corpuscular Hemoglobin 31.9 Mean Corpuscular Hemoglobin 32.6 Concent Red Cell Distribution Width 14.2 Platelet Count 326 Mean Platelet Volume 7.7 Neutrophils (%) (Auto) 91.0 Lymphocytes (%) (Auto) 3.1 Monocytes (%) (Auto) 5.6 Eosinophils (%) (Auto) 0.1 Basophils (%) (Auto) 0.2 Neutrophils # (Auto) 15.7 Lymphocytes # (Auto) 0.5 Monocytes # (Auto) 1.0 Eosinophils # (Auto) 0.0 Basophils # (Auto) 0.0 CBC Comment DIFF FINAL Differential Comment Sodium Level 136 Potassium Level 3.7 Chloride Level 97 Carbon Dioxide Level 27.0 Anion Gap 12 Blood Urea Nitrogen 27 Creatinine 1.55 Estimat Glomerular Filtration 33 Rate Random Glucose 120 Calcium Level 7.5 Total Bilirubin 0.2 Aspartate Amino Transf 16 (AST/SGOT) Alanine Aminotransferase 15 (ALT/SGPT) Alkaline Phosphatase 236 Total Protein 5.3 Albumin 1.4 Phenytoin (Dilantin) Level 17.8 Date/Time Procedure Status Source Growth 09/22/16 17:41 Aerobic Blood Culture Received Blood Peripheral Pending 09/22/16 17:41 Anaerobic Blood Culture Received Blood Peripheral Pending 09/22/16 07:10 Urine Culture Received Urine Catheterized Urine Pending Result Diagram: 09/23/16 0744 09/23/16 0744 Imaging RADIOLOGY STUDIES/FILMS REVIEWED Head CT 09/22/16 06 Signed Impressions: Service Date/Time: Thursday, September 22, 2016 06:53 - CONCLUSION: Stable examination. There is diffuse atrophy and an old infarct in left thalamus. No acute hemorrhage or edema identified. Frankie Hernandez MD Chest X-Ray 09/22/16 0605 Signed Impressions: Service Date/Time: Thursday, September 22, 2016 07:18 - CONCLUSION: Some airspace disease in left upper lobe more pronounced than in December 2014, could be a small area of pneumonia. Frankie Hernandez MD Cervical Spine CT 09/22/16 0000 Signed Impressions: Service Date/Time: Thursday, September 22, 2016 06:53 - CONCLUSION: There is marked anterior subluxation of C3 on C4 with accelerated arthritic change. There subchondral sclerosis and subchondral cystic change suggesting chronicity. The left C3 facet is quite small. There is no evidence of fracture. There is apical lung scarring and bleb formation. Frankie Hernandez MD Assessment and Plan Assessment and Plan IMPRESSION Presentation after a fall, and sustained lacertaion R forntal scalp, has leukocytosis, elevated lactic acid, has underlying ESRD on PD, has dementia - no fever - UA (+) pyuria - CXR with chronic FRANCO infiltrate, no pneumonia symptoms - abdominal tenderness, ?peritonitis on PD - no mention of any diarrhea; still voiding - ?leukocytosis, reactive from her fall ESRD on PD Dementia RECOMMENDATION Continue Cipro and Flagyl for now Follow C/S Spoke with Sana Yoder, works with renal, and she will order PD fluid for analysis and culture Check bladder scan Follow CBC Monitor progress I wll follow along with you Will make further recommendations once work-up completed Thank you for this consultation Radha Ku MD Sep 23, 2016 10:30
--- NOTE | 2016-09-23 11:34 | HHI.PR ---
Subjective Remarks resting comfortably in no distress. denies pain. d/w the RN and no acute issues over night. Objective Vitals Vital Signs Date Time Temp Pulse Resp B/P Pulse Ox O2 Delivery O2 Flow Rate FiO2 09/23/16 09:39 95 09/23/16 08:00 98.7 83 16 147/67 96 09/23/16 05:29 97.1 81 18 145/76 93 09/22/16 23:37 97.1 92 19 132/62 94 09/22/16 17:24 97.5 90 18 114/64 96 09/22/16 16:01 100 17 115/66 95 I/O 09/22/16 09/22/16 09/22/16 09/23/16 09/23/16 09/23/16 07:00 15:00 23:00 07:00 15:00 23:00 Intake Total 120 ml Output Total 125 ml 303 ml Balance -125 ml 120 ml -303 ml Intake Oral 120 ml Output Urine Total 125 ml Peritoneal Fluid 189 ml Hemodialysis 114 ml # Voids 2 1 1 Result Diagram: 09/23/16 0744 09/23/16 0744 Imaging Last Impressions Head CT 09/22/16 0605 Signed Impressions: Service Date/Time: Thursday, September 22, 2016 06:53 - CONCLUSION: Stable examination. There is diffuse atrophy and an old infarct in left thalamus. No acute hemorrhage or edema identified. Frankie Hernandez MD Chest X-Ray 09/22/16 0605 Signed Impressions: Service Date/Time: Thursday, September 22, 2016 07:18 - CONCLUSION: Some airspace disease in left upper lobe more pronounced than in December 2014, could be a small area of pneumonia. Frankie Hernandez MD Cervical Spine CT 09/22/16 0000 Signed Impressions: Service Date/Time: Thursday, September 22, 2016 06:53 - CONCLUSION: There is marked anterior subluxation of C3 on C4 with accelerated arthritic change. There subchondral sclerosis and subchondral cystic change suggesting chronicity. The left C3 facet is quite small. There is no evidence of fracture. There is apical lung scarring and bleb formation. Frankie Hernandez MD Objective Remarks GENERAL: in no acute distress CARDIOVASCULAR: Regular rate and regular rhythm without murmurs, gallops, or rubs. RESPIRATORY: Clear to auscultation. Breath sounds equal bilaterally. No wheezes , rales, or rhonchi. GASTROINTESTINAL: Abdomen soft, non-tender, nondistended. Normal, active bowel sounds MUSCULOSKELETAL: Extremities without clubbing, cyanosis, or edema. NEURO: awake but demented Medications and IVs Current Medications Lidocaine HCl 30 ml 30 ml ONCE ONCE INFIL Last administered on 09/22/16 07:19 ; Start 09/22/16 at 06:15; Stop 09/22/16 at 06:16; Status DC Ceftriaxone Sodium/Sodium Chloride (Rocephin Inj/NS Inj) 100 ml @ 200 mls/hr ONCE ONCE IV Last administered on 09/22/16 08:39; Start 09/22/16 at 08:15; Stop 09/22/16 at 08:44; Status DC IV Flush (NS Flush) 2 ml BID IVF ; Start 09/22/16 at 09:00; Stop 09/22/16 at 09: 04; Status DC IV Flush (NS Flush) 2 ml UNSCH PRN IVF FLUSH AFTER USING IV ACCESS; Start 09/22 at 08:45; Stop 09/22/16 at 09:04; Status DC IV Flush (NS Flush) 2 ml UNSCH PRN FLUSH FLUSH AFTER USING IV ACCESS; Start at 08:45 IV Flush 2 ml 2 ml BID FLUSH Last administered on 09/23/16 08:56; Start at 09:00 Magnesium Sulfate/ Dextrose (Magnesium Sulfate 1 Gm Premix) 100 ml @ 100 mls/ hr ONCE ONCE IV Last administered on 09/22/16 09:25; Start 09/22/16 at 08:45 ; Stop 09/22/16 at 09:44; Status DC Haloperidol Lactate (Haldol Inj) 2 mg ONCE ONCE IM Last administered on 13:55; Start 09/22/16 at 14:00; Stop 09/22/16 at 14:01; Status DC Haloperidol Lactate (Haldol Lactate Liq) 1 mg Q6HR PO Last administered on 09/23 07:01; Start 09/22/16 at 18:00 Levothyroxine Sodium (Synthroid) 112 mcg DAILY@06 PO Last administered on 07:00; Start 09/23/16 at 06:00 Morphine Sulfate (Msir) 15 mg Q4H PRN PO PAIN SCALE 1 TO 10; Start 09/22/16 at 16:30 Sertraline HCl (Zoloft) 50 mg DAILY PO Last administered on 09/23/16 08:55; Start 09/23/16 at 09:00 Amylase/Lipase/ Protease 1 cap 1 cap TIDPC PO Last administered on 09/22/16 19 :27; Start 09/22/16 at 18:30 Ciprofloxacin/ Dextrose 100 ml @ 100 mls/hr Q12H IV ; Start 09/22/16 at 18:00; Stop 09/23/16 at 00:28; Status DC Metronidazole 100 ml @ 100 mls/hr Q8H IV Last administered on 09/23/16 08:56 ; Start 09/22/16 at 17:00 Vancomycin HCl 1250 mg/Sodium Chloride 262.5 ml @ 262.5 mls/ hr Q24H IV ; Start 09/22/16 at 16:45; Status UNV Pharmacy Profile Note 0 ml @ 0 mls/hr UNSCH OTHER ; Start 09/22/16 at 16:45; Stop 09/23/16 at 10:33; Status DC Sodium Chloride 1,000 ml @ 100 mls/hr Q10H IV Last administered on 09/22/16 17:00; Start 09/22/16 at 17:00 Potassium Phosphate 15 mmol/ Sodium Chloride 155 ml @ 38.75 mls/ hr ONCE ONCE IV Last administered on 09/22/16 19:26; Start 09/22/16 at 18:00; Stop at 21:59; Status DC Vancomycin HCl/ Sodium Chloride (Vancomycin Inj/ NS 250 ml Inj) 258 ml @ 250 mls/hr ONCE ONCE IV Last administered on 09/22/16 19:27; Start 09/22/16 at 18 :00; Stop 09/22/16 at 19:01; Status DC Sodium Chloride (NS Inj) WITH DIALYSIS PRN IV SEE LABEL COMMENTS; Start at 17:45 Heparin Sodium (Porcine) Add 1000 units of Hepa... WITH DIALYSIS PRN IVF SEE LABEL COMMENTS; Start 09/22/16 at 17:45 Ciprofloxacin/ Dextrose (Cipro 200 Mg Premix) 100 ml @ 100 mls/hr Q12H IV Last administered on 09/23/16t 03:35; Start 09/23/16 at 02:00 A/P Assessment and Plan A/P (1) Dilantin toxicity dilantin level is improving We'll continue to hold Dilantin. Continue with dialysis plans Repeat levels. (2) Scalp laceration Status post repair, continue supportive care wound care (3) Dementia Severe, family health care surrogate through this spouse Continue Aricept (4) ESRD (end stage renal disease) Continue peritoneal dialysis- nephrology consulted. (5) severe sepsis Continue Marie Lester (PCN ALL) for possible spontaneous bacterial peritonitis , blood cultures negative so far..PD fluid will be sent for culture. ID consult appreciated. (6) Closed head injury Status post scalp laceration repair Continue neuro checks (7) Dehydration Patient with dry mucous membranes and poor IV access. We'll hydrate patient and continue to follow (8)- history of CVA and DVT will hold coumadin for now- doesn't seem to be a good candidate for anticoagulation with dementia and risk of falls. (9) hypothyroidism- continue synthroid DVT prophylaxis with SCD's. consult PT. Caroline Murray MD Sep 23, 2016 11:33
[2016-09-23] MEDS ORDERED: SODIUM CHLOR 0.9% 1000 ML INJ 1,000 ML IV ONE (17:00)
[2016-09-24] VITALS (9 sets, daily range): BP systolic 111–155; BP diastolic 59–79; PULSE 68–90; RESP 16–22; TEMP 96.4–98.3; O2SAT 93–99
[2016-09-24] MEDS: HALOPERIDOL LACTATE ORAL CONC 10 MG/5 ML CUP PO SCH ×5 (02:14→18:08)
[2016-09-24] MEDS: metroNIDAZOLE 500 MG INJ 100 ML IV SCH ×2 (02:15→09:00)
[2016-09-24] MEDS: CIPROFLOXACIN 200 MG PREMIX 100 ML IV SCH ×2 (02:15→13:16)
[2016-09-24] MEDS: LEVOTHYROXINE SODIUM 112 MCG TAB PO SCH (05:07)
[2016-09-24 08:01] LABS: BASOPHIL % 0.2 % (0.0-2.0); EOSINOPHIL % 0.3 % (0.0-4.0); HEMATOCRIT 31.1 % (35.0-46.0); HEMO FLAGS DIFF FINAL; LYMPH % 5.2 % (9.0-44.0); LYMPHOCYTE # 0.7 TH/MM3 (1.0-4.8); MEAN CELL VOLUME 97.6 FL (80.0-100.0); MEAN CORPUSCULAR HEMOGLOBIN 31.9 PG (27.0-34.0); MEAN CORPUSCULAR HGB CONC 32.7 % (32.0-36.0); MONO % 5.8 % (0.0-8.0); NEUT % 88.5 % (16.0-70.0); PLATELET COUNT 343 TH/MM3 (150-450); RED BLOOD COUNT 3.19 MIL/MM3 (4.00-5.30); RED CELL DISTRIBUTION WIDTH 14.1 % (11.6-17.2); WHITE BLOOD COUNT 13.5 TH/MM3 (4.0-11.0)
[2016-09-24 08:09] LABS: INTERNATIONAL NORMALIZED RATIO 2.3 RATIO; PROTHROMBIN TIME - PATIENT 26.1 SEC (9.8-11.6)
[2016-09-24] MEDS ORDERED: ACETAMINOPHEN 325 MG TAB PO PRN (08:45)
[2016-09-24] MEDS ORDERED: ONDANSETRON HCL 4 MG/2 ML VIAL IV PRN (08:45)
[2016-09-24] MEDS ORDERED: DOCUSATE SODIUM 100 MG CAP PO PRN (08:45)
[2016-09-24] MEDS ORDERED: CALCIUM CARBONATE 500 MG CHEWABLE TAB CHEW PRN ×2 (08:45→16:30)
[2016-09-24] MEDS ORDERED: DOCUSATE SODIUM 50 MG/SENNA 8.6 MG TAB PO PRN (08:45)
[2016-09-24 08:52] LABS: PERITONEAL LYMPHS 29 %; PERITONEAL MESOTHELIAL 14 %; PERITONEAL MONOS 36 %; PERITONEAL POLYS(SEGS) 21 %; PERITONEAL WBC 58 /MM3 (0-10)
[2016-09-24] MEDS: MORPHINE SULFATE 15 MG TAB PO PRN (08:58)
[2016-09-24] MEDS: LIPASE/PROTEASE/AMYLASE (24,000/76,000/120,000) CAP PO SCH ×3 (08:59→18:08)
[2016-09-24] MEDS: SERTRALINE HCL 50 MG TAB PO SCH (09:00)
[2016-09-24] MEDS: SODIUM CHLORIDE 0.9% FLUSH 5 ML FLUSH FLUSH SCH ×2 (09:00→21:00)
[2016-09-24 09:03] LABS: BICARBONATE 28.6 MEQ/L (21.0-32.0); POTASSIUM 3.2 MEQ/L (3.5-5.1)
[2016-09-24] MEDS ORDERED: Custom Consult Pharmacy 1 EA OTHER SCH (09:30)
[2016-09-24] MEDS ORDERED: POTASSIUM CHLORIDE 10 MEQ CONTROLLED RELEASE TAB PO ONE (09:45)
[2016-09-24 11:07] LABS: MAGNESIUM 1.5 MG/DL (1.5-2.5)
--- NOTE | 2016-09-24 11:23 | HHI.NPPN ---
Subjective History of Present Illness The patient is a 71 yo [place] female who is known to our services for ESRD on PD. She has severe dementia, so information was obtained thru previous documentation. As per notes, she has been at [facility] for just a few days as her who is her primary caregiver was out of town. She reportedly has been agitated and more confused since her stay at [facility]. She arrived with a head laceration that she states occurred from tripping and falling at her house. Her reported that she rolled out of bed. Although she does have seizure hx, she apparently did not have an seizure activity during fall, nor experience and LOC. She herself denies any fever, chills, nausea, vomiting, or diarrhea, but does endorse RLQ abdominal pain. We were consulted for dialysis care. Interval History Pt feeling OK today. Sitter in room. No events overnight. (Lynn Yoder) Objective Data Data 09/23/16 09/24/16 19:00 07:00 Intake Total 240 ml 240 ml Output Total 553 ml 0 ml Balance -313 ml 240 ml Intake Oral 240 ml 240 ml Output Urine Total 250 ml Stool Total 0 ml Peritoneal Fluid 189 ml Hemodialysis 114 ml Bladder Scan Volume Amount 24 ml # Voids 2 # Bowel Movements 0 0 Vital Signs Date Time Temp Pulse Resp B/P Pulse Ox O2 Delivery O2 Flow Rate FiO2 09/24/16 09:09 97 21 09/24/16 08:38 96.6 84 20 149/72 96 09/24/16 05:46 96.6 81 22 132/72 95 09/24/16 00:00 98.3 76 18 132/59 96 09/23/16 20:00 97.4 75 16 144/68 96 09/23/16 19:00 82 09/23/16 18:25 97 21 09/23/16 16:00 97.4 82 16 124/62 97 09/23/16 12:00 97.7 82 18 144/74 96 (Lynn Yoder) -: 09/24/16 0658 09/24/16 06 Microbiology 09/24/16 Gram Stain, Resulted Pending 09/24/16 Body Fluid Culture - Preliminary, Resulted NO GROWTH IN 24 HOURS. Imaging Last Impressions Head CT 09/22/16 06 Signed Impressions: Service Date/Time: Thursday, September 22, 2016 06:53 - CONCLUSION: Stable examination. There is diffuse atrophy and an old infarct in left thalamus. No acute hemorrhage or edema identified. Frankie Hernandez MD Chest X-Ray 09/22/16 0605 Signed Impressions: Service Date/Time: Thursday, September 22, 2016 07:18 - CONCLUSION: Some airspace disease in left upper lobe more pronounced than in December 2014, could be a small area of pneumonia. Frankie Hernandez MD Cervical Spine CT 09/22/16 0000 Signed Impressions: Service Date/Time: Thursday, September 22, 2016 06:53 - CONCLUSION: There is marked anterior subluxation of C3 on C4 with accelerated arthritic change. There subchondral sclerosis and subchondral cystic change suggesting chronicity. The left C3 facet is quite small. There is no evidence of fracture. There is apical lung scarring and bleb formation. Frankie Hernandez MD Tubes & Lines: Tenckhoff Catheter Medication Review Current Medications Medications (Trade) Dose Ordered Sig/Adeel Route Start Time Stop Time Status Last Admin (NS Flush) 2 ml UNSCH PRN FLUSH 09/22/16 08:45 (NS Flush) 2 ml BID FLUSH 09/22/16 09:00 09/23/16 21:46 (Haldol Lactate Liq) 1 mg Q6HR PO 09/22/16 18:00 09/24/16 05:07 (Synthroid) 112 mcg DAILY@06 PO 09/23/16 06:00 09/24/16 05:07 (Msir) 15 mg Q4H PRN PO 09/22/16 16:30 09/24/16 08:58 (Zoloft) 50 mg DAILY PO 09/23/16 09:00 09/23/16 08:55 Amylase/Lipase/ Protease 1 cap 1 cap TIDPC PO 09/22/16 18:30 09/24/16 08:59 Metronidazole 100 ml @ 100 mls/hr Q8H IV 09/22/16 17:00 09/24/16 02:15 (Cipro 200 Mg Premix) 100 ml @ 100 mls/hr Q12H IV 09/23/16 02:00 09/24/16 02:15 (Tylenol) 650 mg Q4H PRN PO 09/24/16 08:45 (Zofran Inj) 4 mg Q6H PRN IV 09/24/16 08:45 (Colace) 100 mg BID PRN PO 09/24/16 08:45 (Dee-Colace) 1 tab BID PRN PO 09/24/16 08:45 Calcium Carbonate 1000 mg 1,000 mg TID PRN CHEW 09/24/16 08:45 (Custom Consult Pharmacy) 0 ml @ 0 mls/hr UNSCH OTHER 09/24/16 09:30 (Lynn Yoder) Physical Exam General Appearance: No Acute Distress, Malnourished (Lynn Yoder) Eyes Eye Exam: Pupils Equal, Pupils Reactive (Lynn Yoder) Neck Neck Exam: Neck Supple, Trachea Midline (Lynn Yoder) Pulmonary Resp Exam: Clear Bilaterally, Breath Sounds Equal (Lynn Yoder) Cardiology CV Exam: Regular, Normal Sinus Rhythm (Lynn Yoder) Gastrointestinal/Abdomen GI Exam: Soft, Non-Tender GI Remarks PD catheter present. No redness. (Lynn Yoder) Integumentary Skin Exam: Clear, Warm (Lynn Yoder) Extremeties Extremities Exam: No Edema (Lynn Yoder) Neurologic Neuro Exam: Awake (Lynn Yoder) Psychiatric Psych Remarks Pleasantly confused. (Lynn Yoder) Assessment/Plan Problem List: (1) ESRD (end stage renal disease) Plan: To continue with PD as ordered. Pending peritoneal cell counts and culture to r/o peritonitis. The patient is severely debilitated and is at nutritional risk with hypoalbuminemia. Medications should be adjusted for the patient's ESRD. Avoid gadolinium. (2) Failure to thrive in adult Plan: As above, she has severe hypoalbuminemia. She has been deteriorating significantly as an outpatient both physically and mentally. Given her overall declining status, we do feel that hospice would be appropriate if agreeable with the primary. CM should be consulted. (3) Closed head injury Plan: Repaired in ED. CT reviewed. Appears Warfarin has been held. (4) Dementia Plan: Mgmt as per primary (5) Sepsis Plan: BCx neg x48h. UCx shows GNR Peritoneal fluid cx neg x24h. (Lynn Yoder) Plan Patient's overall condition has deteriorated progressively over the last several months. Showing evidence of failure to thrive. I believe hospice consultation would be appropriate even if the patient wishes continue dialysis. Could consider hospice with dialysis. Patient had high nutritional risk. Continue with regular diet. Consider Marinol if appetite does not improve. Because of loss of muscle mass patient's creatinine level is relatively low. Patient also complaining of some discomfort and nausea in the abdomen. She has been on a PPI inhibitor and I have resumed same. The exam, history, and the medical decision-making described in the above note were completed with the assistance of the PAZulay. I reviewed and agree with the findings presented. I attest that I had a [id number] encounter with the patient on the same day, and personally performed and documented my assessment and findings in the medical record. (Patricia Antony MD) Problem Qualifiers (1) Closed head injury: Qualified Code: S09.90XA - Closed head injury, initial encounter Lynn Yoder Sep 24, 2016 11:23 Patricia Antony MD Sep 24, 2016 15:43
--- NOTE | 2016-09-24 12:24 | HHI.IDPN ---
Subjective Subjective Remarks Notes reviewed Temps ok BP good PD fluid ok, no evidence of infection UC with GNR and Enterococcus WBC lower Bladder scan only 24 ml Antibiotics Cipro Flagyl Vanco x 1 dose 09/22 Lines PIV Past Medical History Fibromyalgia History of stroke on Coumadin Severe dementia Bladder instability Fecal incontinence Chronic any disease on peritoneal dialysis Hypothyroidism Chronic pain Past Surgical History Cholecystectomy Peritoneal dialysis placement Rectal surgery Eye surgery Partial thyroidectomy Hysterectomy Allergies: Coded Allergies: Contrast Media (Verified Allergy, Severe, HIVES/SOB, 06/15/15) Diphenhydramine (Verified Allergy, Severe, HIVES/SOB, 06/15/15) ANTIHISTAMINES Penicillin (Verified Allergy, Severe, SOB HIVES, 06/15/15) Adhesives (Verified Allergy, Mild, Swelling, 06/15/15) Benadryl (Verified Allergy, Mild, 06/15/15) Iohexol (OMNIPAQUE) (Verified Allergy, Unknown, sob with premedication-- no contrast!, 06/15/15) Aspirin (Verified Adverse Reaction, Severe, HAS ULCERS, 06/15/15) Objective . Vital Signs Date Time Temp Pulse Resp B/P Pulse Ox O2 Delivery O2 Flow Rate FiO2 09/24/16 09:09 97 21 09/24/16 08:38 96.6 84 20 149/72 96 09/24/16 05:46 96.6 81 22 132/72 95 09/24/16 00:00 98.3 76 18 132/59 96 09/23/16 20:00 97.4 75 16 144/68 96 09/23/16 19:00 82 09/23/16 18:25 97 21 09/23/16 16:00 97.4 82 16 124/62 97 09/23/16 09/23/16 09/24/16 15:00 23:00 07:00 Intake Total 240 ml 240 ml Output Total 553 ml 0 ml Balance -313 ml 240 ml 0 ml Intake Oral 240 ml 240 ml Output Urine Total 250 ml Stool Total 0 ml Peritoneal Fluid 189 ml Hemodialysis 114 ml Bladder Scan Volume Amount 24 ml # Voids 1 1 # Bowel Movements 0 0 . Laboratory Tests Test 09/23/16 09/24/16 07:44 06:58 White Blood Count 17.3 TH/MM3 13.5 TH/MM3 Red Blood Count 3.17 MIL/MM3 3.19 MIL/MM3 Hemoglobin 10.1 GM/DL 10.2 GM/DL Hematocrit 31.1 % 31.1 % Mean Corpuscular Volume 98.0 FL 97.6 FL Mean Corpuscular Hemoglobin 31.9 PG 31.9 PG Mean Corpuscular Hemoglobin 32.6 % 32.7 % Concent Red Cell Distribution Width 14.2 % 14.1 % Platelet Count 326 TH/MM3 343 TH/MM3 Mean Platelet Volume 7.7 FL 7.7 FL Neutrophils (%) (Auto) 91.0 % 88.5 % Lymphocytes (%) (Auto) 3.1 % 5.2 % Monocytes (%) (Auto) 5.6 % 5.8 % Eosinophils (%) (Auto) 0.1 % 0.3 % Basophils (%) (Auto) 0.2 % 0.2 % Neutrophils # (Auto) 15.7 TH/MM3 12.0 TH/MM3 Lymphocytes # (Auto) 0.5 TH/MM3 0.7 TH/MM3 Monocytes # (Auto) 1.0 TH/MM3 0.8 TH/MM3 Eosinophils # (Auto) 0.0 TH/MM3 0.0 TH/MM3 Basophils # (Auto) 0.0 TH/MM3 0.0 TH/MM3 CBC Comment DIFF FINAL DIFF FINAL Differential Comment Laboratory Tests Test 09/22/16 09/23/16 09/23/16 09/24/16 14:40 07:44 12:12 06:58 Lactic Acid Level 5.9 mmol/L 2.2 mmol/L 1.3 mmol/L Sodium Level 136 MEQ/L 137 MEQ/L Potassium Level 3.7 MEQ/L 3.2 MEQ/L Chloride Level 97 MEQ/L 98 MEQ/L Carbon Dioxide Level 27.0 MEQ/L 28.6 MEQ/L Anion Gap 12 MEQ/L 10 MEQ/L Blood Urea Nitrogen 27 MG/DL 20 MG/DL Creatinine 1.55 MG/DL 1.19 MG/DL Estimat Glomerular Filtration 33 ML/MIN 44 ML/MIN Rate Random Glucose 120 MG/DL 98 MG/DL Calcium Level 7.5 MG/DL 7.3 MG/DL Total Bilirubin 0.2 MG/DL Aspartate Amino Transf 16 U/L (AST/SGOT) Alanine Aminotransferase 15 U/L (ALT/SGPT) Alkaline Phosphatase 236 U/L Total Protein 5.3 GM/DL Albumin 1.4 GM/DL 1.4 GM/DL 25-Hydroxy Vitamin D Total 31.0 ng/ML Parathyroid Hormone (Intact) 265.8 PG/ML Phosphorus Level 2.8 MG/DL Magnesium Level 1.5 MG/DL Microbiology Date/Time Procedure Status Source Growth 09/22/16 07:10 Urine Culture - Preliminary Resulted Urine Catheterized Urine Gram Negative [employer] D Enterococcus 09/22/16 14:40 Aerobic Blood Culture - Preliminary Resulted Blood Peripheral NO GROWTH IN 2 DAYS 09/22/16 14:40 Anaerobic Blood Culture - Final Resulted Blood Peripheral QNS - SEE AEROBE REPORT 09/22/16 17:41 Aerobic Blood Culture - Preliminary Resulted Blood Peripheral NO GROWTH IN 2 DAYS 09/22/16 17:41 Anaerobic Blood Culture - Preliminary Resulted Blood Peripheral NO GROWTH IN 2 DAYS 09/24/16 07:30 Gram Stain Resulted Fluid Peritoneal Fluid Pending 09/24/16 07:30 Body Fluid Culture - Preliminary Resulted Fluid Peritoneal Fluid NO GROWTH IN [address] 09/22/16 0605 Signed Impressions: Service Date/Time: Thursday, September 22, 2016 06:53 - CONCLUSION: Stable examination. There is diffuse atrophy and an old infarct in left thalamus. No acute hemorrhage or edema identified. Frankie Hernandez MD Chest X-Ray 09/22/16 0605 Signed Impressions: Service Date/Time: Thursday, September 22, 2016 07:18 - CONCLUSION: Some airspace disease in left upper lobe more pronounced than in December 2014, could be a small area of pneumonia. Frankie Hernandez MD Cervical Spine CT 09/22/16 0000 Signed Impressions: Service Date/Time: Thursday, September 22, 2016 06:53 - CONCLUSION: There is marked anterior subluxation of C3 on C4 with accelerated arthritic change. There subchondral sclerosis and subchondral cystic change suggesting chronicity. The left C3 facet is quite small. There is no evidence of fracture. There is apical lung scarring and bleb formation. Frankie Hernandez MD Physical Exam GENERAL: looks chronically ill appearing, awake, confused, in no apparent distress. SKIN: Cool and dry. Has scattered purpuric areas in her UE and LE HEAD: Normocephalic. No temporal or scalp tenderness. Has a sutured laceration in the R frontal region, dry, with no evidence of infection EYES: Pale conjunctiva, no petechia or hemorrhage. Pupils equal round and reactive. Extraocular motions intact. No scleral icterus. No injection or drainage. ENT: Nose without bleeding, or purulent drainage. Slightly dry oral mucosa. Throat without erythema, or exudate. Uvula midline. Airway patent. NECK: Supple, nontender, no meningeal signs. CARDIOVASCULAR: Regular rate and rhythm without murmurs, gallops, or rubs. RESPIRATORY: Clear to auscultation. Breath sounds equal bilaterally. No wheezes , rales, or rhonchi. Decreased breath sounds at the bases. Has very prominent rib cage. GASTROINTESTINAL: Abdomen soft, mildly distended, with mild tenderness in the lower quadrants. No guarding no rebound. Bowel sounds are present and hypoactive. PD catheter on the right side. No hepato-splenomegaly, or palpable masses. MUSCULOSKELETAL: Extremities without clubbing, cyanosis, or edema. No joint tenderness, effusion, or edema noted. No calf tenderness. Negative Homans sign bilaterally. NEUROLOGICAL: Awake and alert. Cranial nerves grossly intact. Symmetrical motor strength in all extremities. No Babinski, no ankle clonus. She is confused. PSYCH: Confused, calm and cooperative LINE: PIV with no evidence of infection Assessment & Plan Remarks IMPRESSION Presentation after a fall, and sustained laceration R frontal scalp, has leukocytosis, elevated lactic acid, has underlying ESRD on PD, has dementia - no fever - UA (+) pyuria, UC with GNR and Enterococcus - CXR with chronic FRANOC infiltrate, no pneumonia symptoms - abdominal tenderness, ?peritonitis on PD - no mention of any diarrhea; still voiding - ?leukocytosis, reactive from her fall Leukocytosis, better ESRD on PD Dementia RECOMMENDATION Continue Cipro Stop Flagyl Follow C/S Check vanco level Monitor progress Radha Ku MD Sep 24, 2016 12:24
--- NOTE | 2016-09-24 16:41 | HHI.PR ---
Subjective Remarks Follow-up Dilantin toxicity. She is awake but confused. She follows simple commands. Complains of nausea. She is stooling and voiding. Discussed with RN and Objective Vitals Vital Signs Date Time Temp Pulse Resp B/P Pulse Ox O2 Delivery O2 Flow Rate FiO2 09/24/16 12:30 96.4 84 20 129/62 94 09/24/16 09:09 97 21 09/24/16 08:38 96.6 84 20 149/72 96 09/24/16 05:46 96.6 81 22 132/72 95 09/24/16 00:00 98.3 76 18 132/59 96 09/23/16 20:00 97.4 75 16 144/68 96 09/23/16 19:00 82 09/23/16 18:25 97 21 I/O 09/23/16 09/23/16 09/23/16 09/24/16 09/24/16 09/24/16 07:00 15:00 23:00 07:00 15:00 23:00 Intake Total 240 ml 240 ml Output Total 553 ml 0 ml 373 ml Balance -313 ml 240 ml 0 ml -373 ml Intake Oral 240 ml 240 ml Output Urine Total 250 ml Stool Total 0 ml Peritoneal Fluid 189 ml 373 ml Hemodialysis 114 ml Bladder Scan Volume Amount 24 ml # Voids 1 1 1 1 # Bowel Movements 0 0 Result Diagram: 09/24/1658 09/24/1658 Objective Remarks GENERAL: This is a well-nourished, well-developed patient, in no apparent distress. CARDIOVASCULAR: Regular rate and rhythm without murmurs, gallops, or rubs. RESPIRATORY: Clear to auscultation. Breath sounds equal bilaterally. No wheezes , rales, or rhonchi. GASTROINTESTINAL: Abdomen soft, slightly tender mid abdomen, nondistended. Normal active bowel sounds MUSCULOSKELETAL: Extremities without clubbing, cyanosis, or edema. NEURO: Alert. Moves all ext x4 A/P Problem List: (1) Dilantin toxicity ICD Code: T42.0X1A Status: Acute (2) Scalp laceration ICD Code: S01.01XA Status: Acute (3) Dementia ICD Code: F03.90 Status: Chronic (4) ESRD (end stage renal disease) ICD Code: N18.6 Status: Chronic (5) Septic shock ICD Code: A41.9 Status: Acute (6) Closed head injury ICD Code: S09.90XA Status: Acute (7) Dehydration ICD Code: E86.0 Status: Acute Assessment and Plan (1) Dilantin toxicity dilantin level is improving currently still toxic at 32 We'll continue to hold Dilantin. Continue with dialysis plans Repeat levels. (2) Scalp laceration Status post repair, continue supportive care wound care (3) Dementia Severe, family health care surrogate through this spouse Continue Aricept (4) ESRD (end stage renal disease) Continue peritoneal dialysis- nephrology consulted. (5) severe sepsis Continue FlagylMarie (PCN ALL) for possible spontaneous bacterial peritonitis , blood cultures negative so far Peritoneal fluid will be sent for culture. ID consult appreciated. (6) Closed head injury Status post scalp laceration repair Continue neuro checks (7) Dehydration Patient with dry mucous membranes and poor IV access. We'll hydrate patient and continue to follow (8)- history of CVA will restart coumadin. Patient is bedridden and has instituted some measures to prevent falls like bedrails. He accepts risk of anticoagulation (9) hypothyroidism- continue synthroid DVT prophylaxis with SCD's. consult PT. will reenroll her to be [facility] hospice after discharge Problem Qualifiers (1) Dilantin toxicity: Qualified Code: T42.0X1A - Dilantin toxicity, accidental or unintentional, initial encounter (2) Scalp laceration: Qualified Code: S01.01XA - Scalp laceration, initial encounter (3) Closed head injury: Qualified Code: S09.90XA - Closed head injury, initial encounter Bong Warren MD Sep 24, 2016 16:41
[2016-09-24] MEDS ORDERED: WARFARIN SOD 1 MG TAB PO SCH (16:45)
[2016-09-24] MEDS: PANTOPRAZOLE SOD 20 MG DELAYED RELEASE TAB PO SCH (18:11)
[2016-09-24] MEDS: DRONABINOL 2.5 MG CAP PO SCH (21:37)
[2016-09-24] MEDS: METHADONE HCL 10 MG TAB PO SCH (21:38)
[2016-09-25] VITALS (7 sets, daily range): BP systolic 149–172; BP diastolic 68–95; PULSE 77–109; RESP 18–20; TEMP 96.6–97.6; O2SAT 94–98
[2016-09-25] MEDS: LEVOTHYROXINE SODIUM 112 MCG TAB PO SCH (05:26)
[2016-09-25] MEDS: HALOPERIDOL LACTATE ORAL CONC 10 MG/5 ML CUP PO SCH ×4 (05:26→16:38)
[2016-09-25] MEDS: CIPROFLOXACIN 200 MG PREMIX 100 ML IV SCH ×2 (05:27→12:08)
[2016-09-25] MEDS: METHADONE HCL 10 MG TAB PO SCH ×3 (05:27→21:01)
[2016-09-25 07:34] LABS: INTERNATIONAL NORMALIZED RATIO 2.6 RATIO; PROTHROMBIN TIME - PATIENT 29.4 SEC (9.8-11.6)
[2016-09-25 07:56] LABS: MAGNESIUM 1.4 MG/DL (1.5-2.5); POTASSIUM 3.3 MEQ/L (3.5-5.1)
[2016-09-25] MEDS ORDERED: MAGNESIUM SULFATE 1 GM PREMIX 100 ML IV ONE (09:00)
[2016-09-25] MEDS ORDERED: POTASSIUM CHLORIDE 10 MEQ CONTROLLED RELEASE TAB PO ONE (09:00)
[2016-09-25] MEDS: SODIUM CHLORIDE 0.9% FLUSH 5 ML FLUSH FLUSH SCH ×2 (09:02→21:00)
[2016-09-25] MEDS: SERTRALINE HCL 50 MG TAB PO SCH (09:02)
[2016-09-25] MEDS: LIPASE/PROTEASE/AMYLASE (24,000/76,000/120,000) CAP PO SCH ×3 (09:02→16:38)
[2016-09-25] MEDS: DRONABINOL 2.5 MG CAP PO SCH ×2 (09:02→21:01)
[2016-09-25] MEDS: PANTOPRAZOLE SOD 20 MG DELAYED RELEASE TAB PO SCH (09:02)
[2016-09-25] MEDS ORDERED: VANCOMYCIN INJ 1,000 MG in SODIUM CHLOR 0.9% 250 ML INJ 250 ML IV ONE (10:00)
[2016-09-25] MEDS: MORPHINE SULFATE 15 MG TAB PO PRN (10:10)
[2016-09-25] MEDS: MAGNESIUM OXIDE 400 MG TAB PO SCH (12:08)
--- NOTE | 2016-09-25 14:06 | HHI.IDPN ---
Subjective Subjective Remarks Notes reviewed Temps ok BP good PD fluid ok, C/W with rare Bacillus C/W contamination; fluid analysis shows no evidence of infection UC with GNR and Enterococcus Antibiotics Cipro Lines PIV Past Medical History Fibromyalgia History of stroke on Coumadin Severe dementia Bladder instability Fecal incontinence Chronic any disease on peritoneal dialysis Hypothyroidism Chronic pain Past Surgical History Cholecystectomy Peritoneal dialysis placement Rectal surgery Eye surgery Partial thyroidectomy Hysterectomy Allergies: Coded Allergies: Contrast Media (Verified Allergy, Severe, HIVES/SOB, 06/15/15) Diphenhydramine (Verified Allergy, Severe, HIVES/SOB, 06/15/15) ANTIHISTAMINES Penicillin (Verified Allergy, Severe, SOB HIVES, 06/15/15) Adhesives (Verified Allergy, Mild, Swelling, 06/15/15) Benadryl (Verified Allergy, Mild, 06/15/15) Iohexol (OMNIPAQUE) (Verified Allergy, Unknown, sob with premedication-- no contrast!, 06/15/15) Aspirin (Verified Adverse Reaction, Severe, HAS ULCERS, 06/15/15) Objective . Vital Signs Date Time Temp Pulse Resp B/P Pulse Ox O2 Delivery O2 Flow Rate FiO2 09/25/16 12:00 97.6 78 18 166/76 95 09/25/16 08:00 96.7 82 18 150/76 98 09/25/16 05:18 97.6 77 18 149/68 94 09/25/16 00:41 97.4 79 18 157/76 95 09/24/16 20:00 97.9 90 18 148/79 94 09/24/16 19:00 82 09/24/16 16:49 96.9 87 20 155/70 93 09/24/16 16:46 98.1 68 16 111/75 99 09/24/16 09/24/16 09/25/16 15:00 23:00 07:00 Output Total 373 ml 340 ml Balance -373 ml -340 ml Peritoneal Fluid 373 ml 340 ml # Voids 1 2 2 # Bowel Movements 1 0 . Laboratory Tests Test 09/24/16 06:58 White Blood Count 13.5 TH/MM3 Red Blood Count 3.19 MIL/MM3 Hemoglobin 10.2 GM/DL Hematocrit 31.1 % Mean Corpuscular Volume 97.6 FL Mean Corpuscular Hemoglobin 31.9 PG Mean Corpuscular Hemoglobin 32.7 % Concent Red Cell Distribution Width 14.1 % Platelet Count 343 TH/MM3 Mean Platelet Volume 7.7 FL Neutrophils (%) (Auto) 88.5 % Lymphocytes (%) (Auto) 5.2 % Monocytes (%) (Auto) 5.8 % Eosinophils (%) (Auto) 0.3 % Basophils (%) (Auto) 0.2 % Neutrophils # (Auto) 12.0 TH/MM3 Lymphocytes # (Auto) 0.7 TH/MM3 Monocytes # (Auto) 0.8 TH/MM3 Eosinophils # (Auto) 0.0 TH/MM3 Basophils # (Auto) 0.0 TH/MM3 CBC Comment DIFF FINAL Differential Comment Laboratory Tests Test 09/24/16 09/25/16 06:58 07:05 Sodium Level 137 MEQ/L 136 MEQ/L Potassium Level 3.2 MEQ/L 3.3 MEQ/L Chloride Level 98 MEQ/L 100 MEQ/L Carbon Dioxide Level 28.6 MEQ/L 28.0 MEQ/L Anion Gap 10 MEQ/L 8 MEQ/L Blood Urea Nitrogen 20 MG/DL 15 MG/DL Creatinine 1.19 MG/DL 1.27 MG/DL Estimat Glomerular Filtration 44 ML/MIN 41 ML/MIN Rate Random Glucose 98 MG/DL 100 MG/DL Calcium Level 7.3 MG/DL 7.7 MG/DL Phosphorus Level 2.8 MG/DL Magnesium Level 1.5 MG/DL 1.4 MG/DL Albumin 1.4 GM/DL Lipase 512 U/L Microbiology Date/Time Procedure Status Source Growth 09/22/16 14:40 Aerobic Blood Culture - Preliminary Resulted Blood Peripheral NO GROWTH IN 3 DAYS 09/22/16 14:40 Anaerobic Blood Culture - Final Resulted Blood Peripheral QNS - SEE AEROBE REPORT 09/22/16 17:41 Aerobic Blood Culture - Preliminary Resulted Blood Peripheral NO GROWTH IN 3 DAYS 09/22/16 17:41 Anaerobic Blood Culture - Preliminary Resulted Blood Peripheral NO GROWTH IN 3 DAYS 09/24/16 07:30 Gram Stain - Final Resulted Fluid Peritoneal Fluid 09/24/16 07:30 Body Fluid Culture - Preliminary Resulted Bacillus Species Not Anthracis Imaging Head CT 09/22/16 0605 Signed Impressions: Service Date/Time: Thursday, September 22, 2016 06:53 - CONCLUSION: Stable examination. There is diffuse atrophy and an old infarct in left thalamus. No acute hemorrhage or edema identified. Frankie Hernandez MD Chest X-Ray 09/22/16 0605 Signed Impressions: Service Date/Time: Thursday, September 22, 2016 07:18 - CONCLUSION: Some airspace disease in left upper lobe more pronounced than in December 2014, could be a small area of pneumonia. Frankie Hernandez MD Cervical Spine CT 09/22/16 0000 Signed Impressions: Service Date/Time: Thursday, September 22, 2016 06:53 - CONCLUSION: There is marked anterior subluxation of C3 on C4 with accelerated arthritic change. There subchondral sclerosis and subchondral cystic change suggesting chronicity. The left C3 facet is quite small. There is no evidence of fracture. There is apical lung scarring and bleb formation. Frankie Hernandez MD Physical Exam GENERAL: awake, confused, in no apparent distress. SKIN: Cool and dry. Has scattered purpuric areas in her UE and LE HEENT: Has a sutured laceration in the R frontal region, dry, with no evidence of infectio. Pale conjunctiva, no petechia or hemorrhage. No scleral icterus. Slightly dry oral mucosa. NECK: Supple, nontender, no meningeal signs. CARDIOVASCULAR: Regular rate and rhythm without murmurs, gallops, or rubs. RESPIRATORY: Clear to auscultation. Breath sounds equal bilaterally. No wheezes , rales, or rhonchi. Decreased breath sounds at the bases. Has very prominent rib cage. GASTROINTESTINAL: Abdomen soft, mildly distended, with min tenderness in the lower quadrants. No guarding no rebound. Bowel sounds are present and hypoactive. PD catheter on the right side. No hepato-splenomegaly, or palpable masses. MUSCULOSKELETAL: Extremities without clubbing, cyanosis, or edema. No joint tenderness, effusion, or edema noted. No calf tenderness. Negative Homans sign bilaterally. NEUROLOGICAL: Awake and alert. Cranial nerves grossly intact. Symmetrical motor strength in all extremities. No Babinski, no ankle clonus. She is confused. PSYCH: Confused, calm and cooperative LINE: PIV with no evidence of infection Assessment & Plan Remarks IMPRESSION Presentation after a fall, and sustained laceration R frontal scalp, has leukocytosis, elevated lactic acid, has underlying ESRD on PD, has dementia - no fever - UA (+) pyuria, UC with Enterobacter and Enterococcus - CXR with chronic FRANCO infiltrate, no pneumonia symptoms - abdominal tenderness, ?peritonitis on PD - no mention of any diarrhea; still voiding - ?leukocytosis, reactive from her fall Leukocytosis, better ESRD on PD - no evidence of peritonitis - fluid analysis unremarkable - PD fluid C/S with rare Bacillus, C/W contamination Dementia RECOMMENDATION Continue Cipro - change to po - give 10 more days oral Abx for UTI Seems clinically stable from ID standpoint Radha Ku MD Sep 25, 2016 14:06
[2016-09-25] MEDS ORDERED: HALOPERIDOL LACTATE 5 MG/ML AMP IM PRN (16:00)
--- NOTE | 2016-09-25 16:08 | HHI.PR ---
Subjective Remarks Follow-up abdominal pain. Patient agitated and confused speaking [place]an. Was complaining of nonspecific pain. Anorexic and not eating much. Discussed with RN. Objective Vitals Vital Signs Date Time Temp Pulse Resp B/P Pulse Ox O2 Delivery O2 Flow Rate FiO2 09/25/16 12:00 97.6 78 18 166/76 95 09/25/16 08:00 96.7 82 18 150/76 98 09/25/16 05:18 97.6 77 18 149/68 94 09/25/16 00:41 97.4 79 18 157/76 95 09/24/16 20:00 97.9 90 18 148/79 94 09/24/16 19:00 82 09/24/16 16:49 96.9 87 20 155/70 93 09/24/16 16:46 98.1 68 16 111/75 99 I/O 09/24/16 09/24/16 09/24/16 09/25/16 09/25/16 09/25/16 07:00 15:00 23:00 07:00 15:00 23:00 Output Total 0 ml 373 ml 340 ml Balance 0 ml -373 ml -340 ml Stool Total 0 ml Peritoneal Fluid 373 ml 340 ml # Voids 1 1 2 2 # Bowel Movements 1 0 Result Diagram: 09/24/16 0658 09/25/16 0705 Objective Remarks GENERAL: This is a well-nourished, well-developed patient, in no apparent distress. CARDIOVASCULAR: Regular rate and rhythm without murmurs, gallops, or rubs. RESPIRATORY: Clear to auscultation. Breath sounds equal bilaterally. No wheezes , rales, or rhonchi. GASTROINTESTINAL: Abdomen soft, slightly tender mid abdomen, nondistended. Normal active bowel sounds MUSCULOSKELETAL: Extremities without clubbing, cyanosis, or edema. NEURO: Alert. Moves all ext x4. Agitated but following simple commands A/P Problem List: (1) Dilantin toxicity ICD Code: T42.0X1A Status: Acute (2) Scalp laceration ICD Code: S01.01XA Status: Acute (3) Dementia ICD Code: F03.90 Status: Chronic (4) ESRD (end stage renal disease) ICD Code: N18.6 Status: Chronic (5) Septic shock ICD Code: A41.9 Status: Acute (6) Closed head injury ICD Code: S09.90XA Status: Acute (7) Dehydration ICD Code: E86.0 Status: Acute Assessment and Plan (1) Dilantin toxicity Corrected dilantin level is improving currently still toxic at 30 We'll continue to hold Dilantin. Repeat levels. (2) Scalp laceration Status post repair, continue supportive care wound care (3) Dementia Severe, family health care surrogate through this spouse Continue Aricept Agitated today. Continue Haldol and add as needed Haldol. Restraints as needed. (4) ESRD (end stage renal disease) Continue peritoneal dialysis- nephrology consulted. (5) severe sepsis Continue Cipro (PCN ALL) for possible spontaneous bacterial peritonitis, blood cultures negative so far Peritoneal fluid will be sent for culture growing bacillus likely contamination. Patient has enterococcus and enterococcal UTI continue ciprofloxacin (6) Closed head injury Status post scalp laceration repair Continue neuro checks (7) abdominal pain with mildly elevated lipase. Continue Creon and pain management. Regular diet as tolerated. Add Nepro supplement (8)- history of CVA will restart coumadin. Patient is bedridden and has instituted some measures to prevent falls like bedrails. He accepts risk of anticoagulation (9) hypothyroidism- continue synthroid DVT prophylaxis with SCD's. Consult PT. will reenroll her to [facility] hospice after discharge Discharge Planning She is not ready for discharge Problem Qualifiers (1) Dilantin toxicity: Qualified Code: T42.0X1A - Dilantin toxicity, accidental or unintentional, initial encounter (2) Scalp laceration: Qualified Code: S01.01XA - Scalp laceration, initial encounter (3) Closed head injury: Qualified Code: S09.90XA - Closed head injury, initial encounter Bong Warren MD Sep 25, 2016 16:07
--- NOTE | 2016-09-25 17:35 | HHI.NPPN ---
Subjective History of Present Illness The patient is a 71 yo [place] female who is known to our services for ESRD on PD. She has severe dementia, so information was obtained thru previous documentation. As per notes, she has been at [facility] for just a few days as her who is her primary caregiver was out of town. She reportedly has been agitated and more confused since her stay at [facility]. She arrived with a head laceration that she states occurred from tripping and falling at her house. Her reported that she rolled out of bed. Although she does have seizure hx, she apparently did not have an seizure activity during fall, nor experience and LOC. She herself denies any fever, chills, nausea, vomiting, or diarrhea, but does endorse RLQ abdominal pain. We were consulted for dialysis care. Interval History Patient confused. Objective Data Data 09/24/16 09/25/16 19:00 07:00 Output Total 373 ml 340 ml Balance -373 ml -340 ml Peritoneal Fluid 373 ml 340 ml # Voids 1 4 # Bowel Movements 1 Vital Signs Date Time Temp Pulse Resp B/P Pulse Ox O2 Delivery O2 Flow Rate FiO2 09/25/16 12:00 97.6 78 18 166/76 95 09/25/16 08:00 96.7 82 18 150/76 98 09/25/16 05:18 97.6 77 18 149/68 94 09/25/16 00:41 97.4 79 18 157/76 95 09/24/16 20:00 97.9 90 18 148/79 94 09/24/16 19:00 82 -: 09/24/16 0658 09/25/16 0705 Tubes & Lines: Tenckhoff Catheter Physical Exam General Appearance: No Acute Distress, Malnourished Eyes Eye Exam: Pupils Equal, Pupils Reactive Neck Neck Exam: Neck Supple, Trachea Midline Pulmonary Resp Exam: Clear Bilaterally, Breath Sounds Equal Cardiology CV Exam: Regular, Normal Sinus Rhythm Gastrointestinal/Abdomen GI Exam: Soft, Non-Tender Integumentary Skin Exam: Clear, Warm Extremeties Extremities Exam: No Edema Neurologic Neuro Exam: Awake Assessment/Plan Problem List: (1) ESRD (end stage renal disease) Plan: PD culture result noted as well as infectious disease progress note. Does appear to be a contaminant. Continue antibiotics as recommended by infectious disease. Continue dialytic support as long as family wishes and the patient tolerates. Overall prognosis however remains very poor and hospice is appropriate. Medications should be adjusted for the patient's ESRD. Avoid gadolinium. (2) Failure to thrive in adult Plan: As above, she has severe hypoalbuminemia. She has been deteriorating significantly as an outpatient both physically and mentally. Given her overall declining status, we do feel that hospice would be appropriate if agreeable with the primary. CM should be consulted. (3) Closed head injury Plan: Repaired in ED. CT reviewed. Appears Warfarin has been held. (4) Dementia Plan: Mgmt as per primary (5) Sepsis Plan: BCx neg x48h. UCx shows GNR Peritoneal fluid cx neg x24h. Plan Patient's overall condition has deteriorated progressively over the last several months. Showing evidence of failure to thrive. I believe hospice consultation would be appropriate even if the patient wishes continue dialysis. Could consider hospice with dialysis. Patient had high nutritional risk. Continue with regular diet. Consider Marinol if appetite does not improve. Because of loss of muscle mass patient's creatinine level is relatively low. Patient also complaining of some discomfort and nausea in the abdomen. She has been on a PPI inhibitor and I have resumed same. The exam, history, and the medical decision-making described in the above note were completed with the assistance of the PAZulay. I reviewed and agree with the findings presented. I attest that I had a [id number] encounter with the patient on the same day, and personally performed and documented my assessment and findings in the medical record. Problem Qualifiers (1) Closed head injury: Qualified Code: S09.90XA - Closed head injury, initial encounter Patricia Antony MD Sep 25, 2016 17:35
[2016-09-25] MEDS: CIPROFLOXACIN 250 MG TAB PO SCH (22:16)
[2016-09-26] VITALS (7 sets, daily range): BP systolic 138–150; BP diastolic 71–87; PULSE 70–86; RESP 16–20; TEMP 95.4–98.3; O2SAT 94–97
[2016-09-26] MEDS: HALOPERIDOL LACTATE ORAL CONC 10 MG/5 ML CUP PO SCH ×5 (01:02→23:00)
[2016-09-26] MEDS: LEVOTHYROXINE SODIUM 112 MCG TAB PO SCH (06:55)
[2016-09-26] MEDS: METHADONE HCL 10 MG TAB PO SCH ×3 (06:55→22:00)
[2016-09-26 07:12] LABS: INTERNATIONAL NORMALIZED RATIO 2.6 RATIO; PROTHROMBIN TIME - PATIENT 30.2 SEC (9.8-11.6)
[2016-09-26 07:47] LABS: BICARBONATE 26.8 MEQ/L (21.0-32.0); MAGNESIUM 1.6 MG/DL (1.5-2.5); POTASSIUM 3.2 MEQ/L (3.5-5.1)
[2016-09-26] MEDS: SODIUM CHLORIDE 0.9% FLUSH 5 ML FLUSH FLUSH SCH ×2 (09:00→21:00)
[2016-09-26] MEDS ORDERED: POTASSIUM CHLORIDE 10 MEQ CONTROLLED RELEASE TAB PO ONE (09:00)
[2016-09-26] MEDS: PANTOPRAZOLE SOD 20 MG DELAYED RELEASE TAB PO SCH (10:49)
[2016-09-26] MEDS: SERTRALINE HCL 50 MG TAB PO SCH (10:49)
[2016-09-26] MEDS: MORPHINE SULFATE 15 MG TAB PO PRN (10:49)
[2016-09-26] MEDS: LIPASE/PROTEASE/AMYLASE (24,000/76,000/120,000) CAP PO SCH ×3 (10:49→18:17)
[2016-09-26] MEDS: CIPROFLOXACIN 250 MG TAB PO SCH ×2 (10:49→22:59)
[2016-09-26] MEDS: MAGNESIUM OXIDE 400 MG TAB PO SCH (10:49)
[2016-09-26] MEDS: DRONABINOL 2.5 MG CAP PO SCH ×2 (12:24→22:59)
--- NOTE | 2016-09-26 15:06 | HHI.PR ---
Subjective Remarks Follow-up abdominal pain. She has chronic pain. Still with decrease oral intake. Discussed with who does not want tube feeding. He plans to enroll her back to [facility] hospice upon discharge. Plan to discharge tomorrow if she remains calm. Restraints will be discontinued today. Discussed with RN Objective Vitals Vital Signs Date Time Temp Pulse Resp B/P Pulse Ox O2 Delivery O2 Flow Rate FiO2 09/26/16 12:00 95.7 76 16 139/71 95 09/26/16 08:00 95.4 82 16 141/81 94 09/26/16 04:00 98.0 70 20 145/87 95 09/26/16 00:00 98.3 86 18 150/75 97 09/25/16 20:00 96.6 106 18 163/95 97 09/25/16 18:00 101 09/25/16 16:00 96.7 109 20 172/89 95 I/O 09/25/16 09/25/16 09/25/16 09/26/16 09/26/16 09/26/16 07:00 15:00 23:00 07:00 15:00 23:00 Output Total 340 ml 329 ml Balance -340 ml -329 ml Peritoneal Fluid 340 ml 329 ml # Voids 2 2 4 # Bowel Movements 0 2 1 Result Diagram: 09/24/16 0658 09/26/16 0646 Objective Remarks GENERAL: This is a well-nourished, well-developed patient, in no apparent distress. CARDIOVASCULAR: Regular rate and rhythm without murmurs, gallops, or rubs. RESPIRATORY: Clear to auscultation. Breath sounds equal bilaterally. No wheezes , rales, or rhonchi. GASTROINTESTINAL: Abdomen soft, slightly tender mid abdomen, nondistended. Normal active bowel sounds MUSCULOSKELETAL: Extremities without clubbing, cyanosis, or edema. NEURO: Lethargic after receiving narcotic Moves all ext x4. Following simple commands A/P Problem List: (1) Dilantin toxicity ICD Code: T42.0X1A Status: Acute (2) Scalp laceration ICD Code: S01.01XA Status: Acute (3) Dementia ICD Code: F03.90 Status: Chronic (4) ESRD (end stage renal disease) ICD Code: N18.6 Status: Chronic (5) Septic shock ICD Code: A41.9 Status: Acute (6) Closed head injury ICD Code: S09.90XA Status: Acute (7) Dehydration ICD Code: E86.0 Status: Acute Assessment and Plan (1) Dilantin toxicity Corrected dilantin level is therapeutic at 14. According to the , patient was receiving double dose while in the shelter. Restart Dilantin at 239 g daily today Repeat levels. (2) Scalp laceration Status post repair, continue supportive care wound care (3) Dementia Severe, family health care surrogate through this spouse Continue Aricept Calm today. Continue Haldol and add as needed Haldol. Restraints will be discontinued (4) ESRD (end stage renal disease) Continue peritoneal dialysis- nephrology consulted. (5) severe sepsis Continue Cipro (PCN ALL) for possible spontaneous bacterial peritonitis, blood cultures negative so far Peritoneal fluid will be sent for culture growing bacillus likely contamination. Patient has enterococcus and enterococcal UTI continue ciprofloxacin (6) Closed head injury Status post scalp laceration repair Continue neuro checks (7) abdominal pain with mildly elevated lipase. Continue Creon and pain management. Regular diet as tolerated. Add Nepro supplement. Improving lipase (8)- history of CVA will restart coumadin. Patient is bedridden and has instituted some measures to prevent falls like bedrails. He accepts risk of anticoagulation (9) hypothyroidism- continue synthroid DVT prophylaxis with SCD's. Consult PT. will reenroll her to [facility] hospice after discharge Discharge Planning Possible discharge in the morning. Will monitor behavior and need for restraints. Sole caregiver is the Problem Qualifiers (1) Dilantin toxicity: Qualified Code: T42.0X1A - Dilantin toxicity, accidental or unintentional, initial encounter (2) Scalp laceration: Qualified Code: S01.01XA - Scalp laceration, initial encounter (3) Closed head injury: Qualified Code: S09.90XA - Closed head injury, initial encounter Bong Warren MD Sep 26, 2016 15:06
[2016-09-26] MEDS ORDERED: PHENYTOIN SODIUM 30 MG CAP PO SCH (16:00)
[2016-09-26] MEDS ORDERED: WARFARIN SOD 1 MG TAB PO SCH (16:00)
[2016-09-26] MEDS ORDERED: PHENYTOIN SODIUM 100 MG CAP PO SCH (16:00)
--- NOTE | 2016-09-26 16:11 | HHI.IDPN ---
Subjective Subjective Remarks Notes reviewed Remains afebrile BP good D/C plans possibly for tomorrow Antibiotics Cipro Lines PIV Past Medical History Fibromyalgia History of stroke on Coumadin Severe dementia Bladder instability Fecal incontinence Chronic any disease on peritoneal dialysis Hypothyroidism Chronic pain Past Surgical History Cholecystectomy Peritoneal dialysis placement Rectal surgery Eye surgery Partial thyroidectomy Hysterectomy Allergies: Coded Allergies: Contrast Media (Verified Allergy, Severe, HIVES/SOB, 06/15/15) Diphenhydramine (Verified Allergy, Severe, HIVES/SOB, 06/15/15) ANTIHISTAMINES Penicillin (Verified Allergy, Severe, SOB HIVES, 06/15/15) Adhesives (Verified Allergy, Mild, Swelling, 06/15/15) Benadryl (Verified Allergy, Mild, 06/15/15) Iohexol (OMNIPAQUE) (Verified Allergy, Unknown, sob with premedication-- no contrast!, 06/15/15) Aspirin (Verified Adverse Reaction, Severe, HAS ULCERS, 06/15/15) Objective . Vital Signs Date Time Temp Pulse Resp B/P Pulse Ox O2 Delivery O2 Flow Rate FiO2 09/26/16 12:00 95.7 76 16 139/71 95 09/26/16 08:00 95.4 82 16 141/81 94 09/26/16 04:00 98.0 70 20 145/87 95 09/26/16 00:00 98.3 86 18 150/75 97 09/25/16 20:00 96.6 106 18 163/95 97 09/25/16 18:00 101 09/25/16 09/25/16 09/26/16 15:00 23:00 07:00 Output Total 329 ml Balance -329 ml Peritoneal Fluid 329 ml # Voids 2 4 # Bowel Movements 2 1 . Laboratory Tests Test 09/25/16 09/26/16 07:05 06:46 Sodium Level 136 MEQ/L 137 MEQ/L Potassium Level 3.3 MEQ/L 3.2 MEQ/L Chloride Level 100 MEQ/L 101 MEQ/L Carbon Dioxide Level 28.0 MEQ/L 26.8 MEQ/L Anion Gap 8 MEQ/L 9 MEQ/L Blood Urea Nitrogen 15 MG/DL 14 MG/DL Creatinine 1.27 MG/DL 1.36 MG/DL Estimat Glomerular Filtration 41 ML/MIN 38 ML/MIN Rate Random Glucose 100 MG/DL 90 MG/DL Calcium Level 7.7 MG/DL 7.8 MG/DL Magnesium Level 1.4 MG/DL 1.6 MG/DL Lipase 512 U/L 433 U/L Microbiology Date/Time Procedure Status Source Growth 09/24/16 07:30 Gram Stain - Final Complete Fluid Peritoneal Fluid 09/24/16 07:30 Body Fluid Culture - Final Complete Bacillus Species Not Anth[facility] Head CT 09/22/16 0605 Signed Impressions: Service Date/Time: Thursday, September 22, 2016 06:53 - CONCLUSION: Stable examination. There is diffuse atrophy and an old infarct in left thalamus. No acute hemorrhage or edema identified. Frankie Hernandez MD Chest X-Ray 09/22/16 0605 Signed Impressions: Service Date/Time: Thursday, September 22, 2016 07:18 - CONCLUSION: Some airspace disease in left upper lobe more pronounced than in December 2014, could be a small area of pneumonia. Frankie Hernandez MD Cervical Spine CT 09/22/16 0000 Signed Impressions: Service Date/Time: Thursday, September 22, 2016 06:53 - CONCLUSION: There is marked anterior subluxation of C3 on C4 with accelerated arthritic change. There subchondral sclerosis and subchondral cystic change suggesting chronicity. The left C3 facet is quite small. There is no evidence of fracture. There is apical lung scarring and bleb formation. Frankie Hernandez MD Physical Exam GENERAL: awake, confused, NAD SKIN: Cool and dry. No generalized rash HEENT: Has a sutured laceration in the R frontal region, dry, with no evidence of infection. No scleral icterus. NECK: Supple, nontender, no meningeal signs. CARDIOVASCULAR: Regular rate and rhythm without murmurs, gallops, or rubs. RESPIRATORY: Clear to auscultation. Decreased breath sounds at the bases. GASTROINTESTINAL: Abdomen soft, mildly distended, with min tenderness in the lower quadrants. No guarding no rebound. PD catheter on the right side. No hepato-splenomegaly, or palpable masses. MUSCULOSKELETAL: Extremities without clubbing, cyanosis, or edema. NEUROLOGICAL: Awake and alert. Cranial nerves grossly intact. Symmetrical motor strength in all extremities. No Babinski, no ankle clonus. She is confused. PSYCH: Confused, calm and cooperative LINE: PIV with no evidence of infection Assessment & Plan Remarks IMPRESSION Presentation after a fall, and sustained laceration R frontal scalp, has leukocytosis, elevated lactic acid, has underlying ESRD on PD, has dementia - no fever - UA (+) pyuria, UC with Enterobacter and Enterococcus - CXR with chronic FRANCO infiltrate, no pneumonia symptoms - abdominal tenderness, ?peritonitis on PD - no mention of any diarrhea; still voiding - ?leukocytosis, reactive from her fall Leukocytosis, better ESRD on PD - no evidence of peritonitis - fluid analysis unremarkable - PD fluid C/S with rare Bacillus, C/W contamination Dementia RECOMMENDATION Continue Cipro - give 10 more days oral Abx for UTI - end [facility] Seems clinically stable from ID standpoint I will be available prn Stable for D/C from ID standpoint Radha Ku MD Sep 26, 2016 16:10
--- NOTE | 2016-09-26 17:41 | HHI.NPPN ---
Subjective History of Present Illness The patient is a 71 yo [place] female who is known to our services for ESRD on PD. She has severe dementia, so information was obtained thru previous documentation. As per notes, she has been at [facility] for just a few days as her who is her primary caregiver was out of town. She reportedly has been agitated and more confused since her stay at [facility]. She arrived with a head laceration that she states occurred from tripping and falling at her house. Her reported that she rolled out of bed. Although she does have seizure hx, she apparently did not have an seizure activity during fall, nor experience and LOC. She herself denies any fever, chills, nausea, vomiting, or diarrhea, but does endorse RLQ abdominal pain. We were consulted for dialysis care. Interval History Pt resting. Was restrained this AM related to agitation. Still with sitter in room. (Lynn Yoder) Objective Data Data 09/25/16 09/26/16 19:00 07:00 Output Total 329 ml Balance -329 ml Peritoneal Fluid 329 ml # Voids 2 4 # Bowel Movements 3 Vital Signs Date Time Temp Pulse Resp B/P Pulse Ox O2 Delivery O2 Flow Rate FiO2 09/26/16 12:00 95.7 76 16 139/71 95 09/26/16 08:00 95.4 82 16 141/81 94 09/26/16 04:00 98.0 70 20 145/87 95 09/26/16 00:00 98.3 86 18 150/75 97 09/25/16 20:00 96.6 106 18 163/95 97 09/25/16 18:00 101 (Lynn Yoder) -: 09/24/16 0658 09/26/16 0646 Tubes & Lines: Tenckhoff Catheter Medication Review Current Medications Medications (Trade) Dose Ordered Sig/Adeel Route Start Time Stop Time Status Last Admin (NS Flush) 2 ml UNSCH PRN FLUSH 09/22/16 08:45 (NS Flush) 2 ml BID FLUSH 09/22/16 09:00 09/26/16 09:00 (Haldol Lactate Liq) 1 mg Q6HR PO 09/22/16 18:00 09/26/16 06:55 (Synthroid) 112 mcg DAILY@06 PO 09/23/16 06:00 09/26/16 06:55 (Msir) 15 mg Q4H PRN PO 09/22/16 16:30 09/26/16 10:49 (Zoloft) 50 mg DAILY PO 09/23/16 09:00 09/26/16 10:49 (Creon 24-76-120) 1 cap TIDPC PO 09/22/16 18:30 09/26/16 12:24 (Tylenol) 650 mg Q4H PRN PO 09/24/16 08:45 (Zofran Inj) 4 mg Q6H PRN IV 09/24/16 08:45 (Colace) 100 mg BID PRN PO 09/24/16 08:45 (Dee-Colace) 1 tab BID PRN PO 09/24/16 08:45 Calcium Carbonate 1000 mg 1,000 mg TID PRN CHEW 09/24/16 08:45 (Custom Consult Pharmacy) 0 ml @ 0 mls/hr UNSCH OTHER 09/24/16 09:30 (Protonix) 20 mg DAILY PO 09/24/16 15:45 09/26/16 10:49 (Tums Chew) 500 mg Q6H PRN CHEW 09/24/16 16:30 (Marinol) 2.5 mg BID PO 09/24/16 21:00 09/26/16 12:24 Methadone HCl 30 mg 30 mg Q8HR PO 09/24/16 22:00 09/26/16 06:55 (Coumadin Consult Pharmacy) 0 ml @ 0 mls/hr UNSCH OTHER 09/24/16 16:45 (Coumadin) 1 mg MoTuWeThFrSa@16 PO 09/26/16 16:00 09/26/16 16:17 (Mag-Ox) 400 mg DAILY PO 09/25/16 11:00 09/26/16 10:49 (Cipro) 250 mg Q12HR PO 09/25/16 21:00 10/05/16 20:59 09/26/16 10:49 (Haldol Inj) 1 mg Q8H PRN IM 09/25/16 16:00 09/25/16 16:42 (Dilantin Infatabs Chew) 50 mg BID PO 09/27/16 09:00 (Lynn Yoder) Physical Exam General Appearance: No Acute Distress, Malnourished (Lynn Yoder) Eyes Eye Exam: Pupils Equal, Pupils Reactive (Lynn Yoder) Neck Neck Exam: Neck Supple, Trachea Midline (Lynn Yoder) Pulmonary Resp Exam: Clear Bilaterally, Breath Sounds Equal (Lynn Yoder) Cardiology CV Exam: Regular, Normal Sinus Rhythm (Lynn Yoder) Gastrointestinal/Abdomen GI Exam: Soft, Non-Tender GI Remarks PD catheter present. No redness. (Lynn Yoder) Integumentary Skin Exam: Clear, Warm (Lynn Yoder) Extremeties Extremities Exam: No Edema (Lynn Yoder) Psychiatric Psych Remarks Pleasantly confused. (Lynn Yoder) Assessment/Plan Problem List: (1) ESRD (end stage renal disease) Plan: PD culture result noted as well as infectious disease progress note. Does appear to be a contaminant OK to be discharged from renal standpoint. Mention of discharge with hospice. Need clarification on hospice with dialysis or without. As stated previously, will continue on dialysis as long as the patient and family wishes. Can proceed with hospice with dialysis as long as renal failure is not the primary diagnosis for hospice care. Medications should be adjusted for the patient's ESRD. Avoid gadolinium. (2) Failure to thrive in adult Plan: She has been deteriorating significantly as an outpatient both physically and mentally. Given her overall declining status, we do feel that hospice would be appropriate. (3) Closed head injury Plan: Repaired in ED. CT neg (4) Dementia Plan: Mgmt as per primary (5) Sepsis Plan: Resolved (Lynn Yoder) Plan The exam, history, and the medical decision-making described in the above note were completed with the assistance of the PA-Lauren. I reviewed and agree with the findings presented. (Patricia Antony MD) Problem Qualifiers (1) Closed head injury: Qualified Code: S09.90XA - Closed head injury, initial encounter Lynn Yoder Sep 26, 2016 17:41 Patricia Antony MD Sep 27, 2016 11:10
[2016-09-27] VITALS: PULSE 77; RESP 16; TEMP 97; O2SAT 97
[2016-09-27 04:00] VITALS: BP 143/75; PULSE 87; RESP 18; TEMP 97.2; O2SAT 97
[2016-09-27] MEDS: MORPHINE SULFATE 15 MG TAB PO PRN ×2 (04:47→08:43)
[2016-09-27] MEDS: LEVOTHYROXINE SODIUM 112 MCG TAB PO SCH (05:31)
[2016-09-27] MEDS: HALOPERIDOL LACTATE ORAL CONC 10 MG/5 ML CUP PO SCH ×2 (05:31→12:48)
[2016-09-27] MEDS: METHADONE HCL 10 MG TAB PO SCH ×2 (05:31→12:48)
[2016-09-27 06:09] LABS: INTERNATIONAL NORMALIZED RATIO 2.6 RATIO; PROTHROMBIN TIME - PATIENT 30.4 SEC (9.8-11.6)
[2016-09-27 06:34] LABS: BICARBONATE 30.8 MEQ/L (21.0-32.0); MAGNESIUM 1.7 MG/DL (1.5-2.5); POTASSIUM 3.4 MEQ/L (3.5-5.1)
[2016-09-27 08:00] VITALS: BP 136/84; PULSE 74; RESP 16; TEMP 98.1; O2SAT 96
[2016-09-27] MEDS: LIPASE/PROTEASE/AMYLASE (24,000/76,000/120,000) CAP PO SCH ×2 (08:44→12:48)
[2016-09-27] MEDS: SERTRALINE HCL 50 MG TAB PO SCH (08:45)
[2016-09-27] MEDS: PANTOPRAZOLE SOD 20 MG DELAYED RELEASE TAB PO SCH (08:45)
[2016-09-27] MEDS: MAGNESIUM OXIDE 400 MG TAB PO SCH (08:45)
[2016-09-27] MEDS: DRONABINOL 2.5 MG CAP PO SCH (08:45)
[2016-09-27] MEDS: CIPROFLOXACIN 250 MG TAB PO SCH (08:45)
[2016-09-27] MEDS ORDERED: PHENYTOIN 50 MG CHEWABLE TAB PO SCH ×2 (09:00→14:15)
[2016-09-27] MEDS: SODIUM CHLORIDE 0.9% FLUSH 5 ML FLUSH FLUSH SCH (09:00)
--- NOTE | 2016-09-27 10:00 | HHI.DCPOC ---
Discharge Care Plan Diagnosis: (1) UTI (urinary tract infection) (2) Dilantin toxicity Your Health Problems Are: Difficulty with ADL Exercise Tolerance Goals to Promote Your Health * To prevent worsening of your condition and complications * To maintain your health at the optimal level Directions to Meet Your Goals Take your medications as prescribed Follow your dietary instruction Follow activity as directed Keep your appointments as scheduled Take your immunizations and boosters as scheduled If your symptoms worsen call your PCP, if no PCP go to Urgent Care Center or Emergency Room Smoking is Dangerous to Your Health. Avoid second hand smoke Call the 24-hour hour crisis hotline for domestic abuse at Bong Warren MD Sep 27, 2016 10:00
[2016-09-27 10:28] VITALS: PULSE 78
[2016-09-27 12:14] VITALS: BP 130/70; PULSE 77; RESP 16; TEMP 97.6; O2SAT 94
--- NOTE | 2016-09-27 13:01 | HHI.PR ---
Subjective Remarks Follow-up dementia. She is smiling today wants to go home. Still complains of chronic abdominal pain. Discussed with and [facility], she has been enrolled back to hospice Objective Vitals Vital Signs Date Time Temp Pulse Resp B/P Pulse Ox O2 Delivery O2 Flow Rate FiO2 09/27/16 12:14 97.6 77 16 130/70 94 09/27/16 10:28 78 09/27/16 08:00 98.1 74 16 136/84 96 09/27/16 04:00 97.2 87 18 143/75 97 09/27/16 00:00 97.0 77 16 97 09/26/16 21:30 97.2 74 17 150/80 95 09/26/16 18:00 73 09/26/16 18:00 73 09/26/16 16:00 95.8 78 16 138/71 96 I/O 09/26/16 09/26/16 09/26/16 09/27/16 09/27/16 09/27/16 07:00 15:00 23:00 07:00 15:00 23:00 Intake Total 60 ml 0 ml Output Total 329 ml 0 ml 1 ml 288 ml Balance -329 ml 60 ml 0 ml -1 ml -288 ml Intake Oral 60 ml 0 ml Output Urine Total 0 ml Stool Total 1 ml Peritoneal Fluid 329 ml Hemodialysis 288 ml # Voids 4 1 # Bowel Movements 3 0 Result Diagram: 09/24/16 0658 09/27/16 0523 Objective Remarks GENERAL: This is a well-nourished, well-developed patient, in no apparent distress. CARDIOVASCULAR: Regular rate and rhythm without murmurs, gallops, or rubs. RESPIRATORY: Clear to auscultation. Breath sounds equal bilaterally. No wheezes , rales, or rhonchi. GASTROINTESTINAL: Abdomen soft, slightly tender mid abdomen, nondistended. Normal active bowel sounds MUSCULOSKELETAL: Extremities without clubbing, cyanosis, or edema. NEURO: Awake and alert. Moves all ext x4. Following simple commands A/P Problem List: (1) Dilantin toxicity ICD Code: T42.0X1A Status: Acute (2) Scalp laceration ICD Code: S01.01XA Status: Acute (3) Dementia ICD Code: F03.90 Status: Chronic (4) ESRD (end stage renal disease) ICD Code: N18.6 Status: Chronic (5) Septic shock ICD Code: A41.9 Status: Acute (6) Closed head injury ICD Code: S09.90XA Status: Acute (7) Dehydration ICD Code: E86.0 Status: Acute Assessment and Plan (1) Dilantin toxicity with history of seizure disorder According to the , patient was receiving double dose [facility] in the [facility]. Resolved. Restart Dilantin at 50 mg twice a day and monitor levels. Corrected Dilantin level VII.5 today we'll give 50 mg Dilantin extra dose. Seizure precautions (2) Scalp laceration Status post repair, continue supportive care wound care (3) Dementia Severe, family health care surrogate through this spouse Continue Aricept Calm today. Continue Haldol and add as needed Haldol. Restraints will be discontinued (4) ESRD (end stage renal disease) Continue peritoneal dialysis- nephrology consulted. (5) severe sepsis Continue Cipro (PCN ALL) for possible spontaneous bacterial peritonitis, blood cultures negative so far Peritoneal fluid will be sent for culture growing bacillus likely contamination. Patient has enterococcus and enterococcal UTI continue ciprofloxacin (6) Closed head injury Status post scalp laceration repair Continue neuro checks (7) abdominal pain with mildly elevated lipase. Continue Creon and pain management. Regular diet as tolerated. Add Nepro supplement. Improving lipase (8)- history of CVA will restart coumadin. Patient is bedridden and has instituted some measures to prevent falls like bedrails. He accepts risk of anticoagulation (9) hypothyroidism- continue synthroid 10. FEN. Poor po. Nephro. refuses TF DVT prophylaxis with SCD's. Consult PT. [facility] hospice has accepted her and will follow-up outpatient Problem Qualifiers (1) Dilantin toxicity: Qualified Code: T42.0X1A - Dilantin toxicity, accidental or unintentional, initial encounter (2) Scalp laceration: Qualified Code: S01.01XA - Scalp laceration, initial encounter (3) Closed head injury: Qualified Code: S09.90XA - Closed head injury, initial encounter Bong Warren MD Sep 27, 2016 13:01
[2016-09-27] MEDS ORDERED: DILA50CH PO (13:28)
[2016-09-27] MEDS ORDERED: CIPR250T52 PO (13:28)
--- NOTE | 2016-09-27 13:40 | HHI.DS ---
Discharge Summary Admission Date Sep 22, 2016 at 08:34 Discharge Date: Sep 27, 2016 Admitting Diagnosis CHI; scalp laceration; dilantin toxicity; polypharmacy;UTI;ESRD (1) Dilantin toxicity ICD Code: T42.0X1A Diagnosis: Principal (2) Scalp laceration ICD Code: S01.01XA Diagnosis: Principal (3) Dementia ICD Code: F03.90 Diagnosis: Principal (4) ESRD (end stage renal disease) ICD Code: N18.6 Diagnosis: Principal (5) Septic shock ICD Code: A41.9 Diagnosis: Principal (6) Closed head injury ICD Code: S09.90XA Diagnosis: Principal (7) Dehydration ICD Code: E86.0 Diagnosis: Principal Procedures none Brief History - From Admission Patient is a 71-year-old female with dementia who did arrive to the emergency room with private transportation after a fall at home. Patient has been on home health care through [facility] although she is not on hospice. Apparently normally she lives with her who was out of town and the patient went to rehabilitation facility. Her son was able to bring her home however the home care Center per the patient's son was out of the room and the patient fell on her head and sustained a right sided laceration to the parietal temporal area. It has since been repaired in the emergency room. There is no loss of consciousness or seizure activity. Patient has severe dementia and has required constant reorienting and has been a fall risk in the past. She is also on Coumadin due to her history of stroke. Here the patient is quite agitated and requiring constant supervision. She is incoherent which is not new per the patient done. Patient does undergo peritoneal dialysis and has reportedly not had any trouble with this however she has come to the hospital with alleged lites which are quite abnormal as well as some toxicity levels with Dilantin. Recently patient's confusion has gotten worse and she had been placed on intermediate release morphine in addition to her methadone Fioricet as well as haloperidol in addition to her sertraline. Patient has also been on Aricept for dementia. He does have a history of seizures and that is why she is on Dilantin. There have been no fevers or chills. Has been no nausea. Patient has constant diarrhea due to rectal prolapse and inability to care for herself. Per the son this may have gotten worse over the last week. Patient appears quite dehydrated on exam. She eats poorly and has a normal body weight of about 80 pounds per the son. Lately she has eaten even less. Patient was admitted through the emergency room due to these issues. She was unable to have her labs drawn until vascular access was obtained. At that time blood cultures were obtained as well as serum lactate which was elevated at 5. She has mild leukocytosis, abnormal urinalysis and appears to be septic. She has been given IV antibiotics. Patient has been admitted to the medical team at [facility]. CBC/BMP: 09/24/16 0658 09/27/16 0523 Significant Findings Laboratory Tests Test 09/25/16 09/26/16 09/27/16 07:05 06:46 05:23 Prothrombin Time 29.4 SEC 30.2 SEC 30.4 SEC (9.8-11.6) (9.8-11.6) (9.8-11.6) Potassium Level 3.3 MEQ/L 3.2 MEQ/L 3.4 MEQ/L (3.5-5.1) (3.5-5.1) (3.5-5.1) Creatinine 1.27 MG/DL 1.36 MG/DL 1.47 MG/DL (0.50-1.00) (0.50-1.00) (0.50-1.00) Estimat Glomerular Filtration 41 ML/MIN (>89) 38 ML/MIN (>89) 35 ML/MIN (>89) Rate Calcium Level 7.7 MG/DL 7.8 MG/DL 7.6 MG/DL (8.5-10.1) (8.5-10.1) (8.5-10.1) Magnesium Level 1.4 MG/DL (1.5-2.5) Lipase 512 U/L 433 U/L (73-393) (73-393) Phenytoin (Dilantin) Level 7.3 MCG/ML 3.4 MCG/ML 1.8 MCG/ML (10.0-20.0) (10.0-20.0) (10.0-20.0) Random Glucose 111 MG/DL (74-106) Imaging Last Impressions Head CT 09/22/16 0605 Signed Impressions: Service Date/Time: Thursday, September 22, 2016 06:53 - CONCLUSION: Stable examination. There is diffuse atrophy and an old infarct in left thalamus. No acute hemorrhage or edema identified. Frankie Hernandez MD Chest X-Ray 09/22/16 0605 Signed Impressions: Service Date/Time: Thursday, September 22, 2016 07:18 - CONCLUSION: Some airspace disease in left upper lobe more pronounced than in December 2014, could be a small area of pneumonia. Frankie Hernandez MD Cervical Spine CT 09/22/16 0000 Signed Impressions: Service Date/Time: Thursday, September 22, 2016 06:53 - CONCLUSION: There is marked anterior subluxation of C3 on C4 with accelerated arthritic change. There subchondral sclerosis and subchondral cystic change suggesting chronicity. The left C3 facet is quite small. There is no evidence of fracture. There is apical lung scarring and bleb formation. Frankie Hernandez MD PE at Discharge GENERAL: This is a well-nourished, well-developed patient, in no apparent distress. CARDIOVASCULAR: Regular rate and rhythm without murmurs, gallops, or rubs. RESPIRATORY: Clear to auscultation. Breath sounds equal bilaterally. No wheezes , rales, or rhonchi. GASTROINTESTINAL: Abdomen soft, slightly tender mid abdomen, nondistended. Normal active bowel sounds MUSCULOSKELETAL: Extremities without clubbing, cyanosis, or edema. NEURO: Awake and alert. Moves all ext x4. Following simple commands Hospital Course (1) Dilantin toxicity with history of seizure disorder According to the , patient was receiving [facility] dose [facility]. Resolved. Restart Dilantin at 50 mg twice a day and monitor levels. Corrected Dilantin level VII.5 today we'll give 50 mg Dilantin extra dose. Seizure precautions (2) Scalp laceration Status post repair, continue supportive care wound care (3) Dementia Severe, family health care surrogate through this spouse Continue Aricept Calm today. Continue Haldol and add as needed Haldol. Restraints will be discontinued (4) ESRD (end stage renal disease) Continue peritoneal dialysis- nephrology consulted. (5) severe sepsis Continue Cipro (PCN ALL) for possible spontaneous bacterial peritonitis, blood cultures negative so far Peritoneal fluid will be sent for culture growing bacillus likely contamination. Patient has enterococcus and enterococcal UTI continue ciprofloxacin (6) Closed head injury Status post scalp laceration repair Continue neuro checks (7) abdominal pain with mildly elevated lipase. Continue Creon and pain management. Regular diet as tolerated. Add Nepro supplement. Improving lipase (8)- history of CVA will restart coumadin. Patient is bedridden and has instituted some measures to prevent falls like bedrails. He accepts risk of anticoagulation (9) hypothyroidism- continue synthroid 10. FEN. Poor po. Nephro. refuses TF DVT prophylaxis with SCD's. Consult PT. [facility] has accepted her and will follow-up outpatient Pt Condition on Discharge: Guarded Discharge Disposition: Hospice/ Home Discharge Time: <= 30 minutes Discharge Instructions DIET: Follow Instructions for: As Tolerated, No Restrictions Activities you can perform: Regular-No Restrictions Activities to Avoid: Driving Follow up Referrals: Appointment for Follow Up - Today with [facility] PCP Follow-up - 1 Week New Medications: Ciprofloxacin (Cipro) 250 Mg Tab 250 MG PO Q12HR Infection #16 TAB Phenytoin Chew (Dilantin Infatabs) 50 Mg Chw 50 MG PO BID Control Seizures #60 EA Continued Medications: Donepezil (Aricept) 10 Mg Tab 10 MG PO HS Dementia #30 Ref 0 TAB Dronabinol (Dronabinol) 2.5 Mg Cap 2.5 MG PO BID Ref 0 CAP Haloperidol Liq (Haloperidol Liq) 2 Mg/Ml Conc 1 MG PO Q6H Ref 0 ML Levothyroxine (Synthroid) 112 Mcg Tab 112 MCG PO DAILY Thyroid #30 Ref 0 TAB Methadone (Methadone) 10 Mg Tab 30 MG PO Q8HR Ref 0 TAB Morphine IR (Morphine IR) 15 Mg Tab 15 MG PO Q4H PRN PAIN Ref 0 TAB Pancrelipase (Zenpep) 20,000-68,000-109,000 Units Cap 1 CAP PO TIDPC Digestive Aid #90 Ref 0 CAP Pantoprazole (Protonix) 40 Mg Tab 40 MG PO DAILY Reflux #30 Ref 0 TAB Saccharomyces Boulardii (Florastor) 250 Mg Cap 250 MG PO DAILY Nutritional Supplement Ref 0 CAP Sertraline (Sertraline) 50 Mg Tab 50 MG PO DAILY #30 Ref 0 TAB Warfarin (Coumadin) 1 Mg Tab 1 MG PO DIRECTED Prevent Blood Clot #30 Ref 0 TAB Bong Warren MD Sep 27, 2016 13:39
[2016-09-27] MEDS ORDERED: POTASSIUM CHLORIDE 10 MEQ CONTROLLED RELEASE TAB PO ONE (13:45)
[2016-09-27] MEDS ORDERED: PHENYTOIN SODIUM 30 MG CAP PO ONE (13:45)
== END 2016-09-27 14:11 | disposition hospice, home (50) | DRG 853 ==
LOC: PHED 05:45 → PHEDA 08:34 → PHEDH 12:33 → N05A 16:44
PROVIDERS: ADMIT Internal Medicine; ATTEND Internal Medicine
PROC: 0JQ00ZZ Repair Scalp Subcutaneous Tissue and Fascia, Open Approach (ICD-10-PCS; principal; 2016-09-22)
DX: A41.9 Sepsis, unspecified organism (principal); R65.21 Severe sepsis with septic shock; J44.9 Chronic obstructive pulmonary disease, unspecified; N18.6 End stage renal disease; I12.0 Hypertensive chronic kidney disease with stage 5 chronic kidney disease or end stage renal disease; S01.01XA Laceration without foreign body of scalp, initial encounter; J45.909 Unspecified asthma, uncomplicated; F03.90 Unspecified dementia, unspecified severity, without behavioral disturbance, psychotic disturbance, mood disturbance, and anxiety; N39.0 Urinary tract infection, site not specified; E88.09 Other disorders of plasma-protein metabolism, not elsewhere classified; T42.0X5A Adverse effect of hydantoin derivatives, initial encounter; G89.29 Other chronic pain; E86.0 Dehydration; Z79.01 Long term (current) use of anticoagulants; R19.7 Diarrhea, unspecified; K62.3 Rectal prolapse; I69.341 Monoplegia of lower limb following cerebral infarction affecting right dominant side; Z74.01 Bed confinement status; E89.0 Postprocedural hypothyroidism; B95.2 Enterococcus as the cause of diseases classified elsewhere; W01.0XXA Fall on same level from slipping, tripping and stumbling without subsequent striking against object, initial encounter; Y92.019 Unspecified place in single-family (private) house as the place of occurrence of the external cause; E78.5 Hyperlipidemia, unspecified; G40.909 Epilepsy, unspecified, not intractable, without status epilepticus; K21.9 Gastro-esophageal reflux disease without esophagitis; M06.9 Rheumatoid arthritis, unspecified; M19.90 Unspecified osteoarthritis, unspecified site; M79.7 Fibromyalgia; R62.7 Adult failure to thrive; Z90.3 Acquired absence of stomach [part of]; Z91.81 History of falling; Z99.2 Dependence on renal dialysis
CPT/HCPCS: 12002; 70450; 71010; 72125; 76937; 80048; 80053; 80069; 80185; 80202; 81001; 82140; 82306; 83605; 83690; 83735; 83970; 84443; 85025; 85610; 87040; 87070; 87077; 87086; 87186; 87205; 89051; 90935; J0696; J0744; J1630; J3370; J3475; J7030; J7050; Q0167